=== PATIENT | male | born 1935 | race Caucasian/White ===

== ENCOUNTER 2016-10-04 08:48 | Inpatient (IN) ==
[2016-10-04] MEDS ORDERED: ALBUTEROL/IPRATROPIUM 3 ML NEB RESP TX PRN (08:50)
[2016-10-04] MEDS: DEXTROSE 5% NACL 0.45% 1,000 ML IV SCH (10:30)
--- NOTE | 2016-10-04 10:32 | Pulmonology History & Physical ---
History of Present Illness Chief complaint: Acute LLL pneumonia refractory to OP treatment History of present illness: Tristin Townsend, ANP-BC, GNP-BC, acting as scribe for Dr. Anjel Petit Mr. Perry is an 80-year-old white male from [place], [place], who was [facility] yesterday by Dr. Petit. Patient presented to the clinic with complaints of increased shortness of breath, dyspnea on exertion, productive cough with discolored sputum. He has actually increased his prednisone from his usual 10 mg daily to 20 mg daily over the weekend. He called late last week for antibiotics and was prescribed Pen-Vee K and Levaquin , however, his local pharmacy would not fill his Levaquin secondary to interactions with his amiodarone. They told the patient that they would "get in contact with his doctor". They held his medicine until yesterday. By that time, the patient had developed an acute left lower lung infiltrate compatible with pneumonia. Hospitalization was offered but he declined. He was given IV gentamicin and Rocephin yesterday, however, he slightly worsened through the night and felt that he was to the point where hospitalization would benefit him. He is being admitted for further evaluation and care. He is reporting increased shortness of breath, dyspnea on exertion, productive cough with discolored sputum as above. He denies any cardiac angina or palpitations. There is no reported dysphasia or significant reflux. No change in bowel or bladder habits. No bleeding from any site. No TIA symptoms or syncope. All other systems were reviewed and were negative. Allergies: None Home medications: Albuterol 1 mg twice daily. Nebulized albuterol 2-4 times daily. Allopurinol 100 mg daily. Baby aspirin once a day. Centrum Silver vitamin daily. Tranxene 3.75 mg 1 or 2 daily. Coreg 3.125 mg tablets 2 in the morning 1 in the evening. Coumadin as directed. Ferrous sulfate 325 mg twice daily. Hydrochlorothiazide 25 mg twice daily. Miacalcin nasal spray 1 spray to each nare daily alternate sides. Singular 10 mg daily. KCl 10 mEq twice daily. Prednisone 10 mg daily recently increased to 20 mg daily see above. Trazodone 50 mg daily. Ventolin HFA inhaler 2 puffs 4 times daily as needed. Immunizations: Pneumovax was given in 2010. Patient is yearly flu shot. Past history: [facility] hospitalization 05/08/2012 through 05/14/2012 with acute congestive heart failure secondary to systolic and diastolic dysfunction and acute atrial fibrillation. History of cardiomyopathy with an ejection fraction of about 25%. Echocardiogram done 10/30/2013 showed an ejection fraction 55% or greater. Asthma, steroid dependent on a multiyear basis. History of gout. History of high blood pressure. History of colon polyps. Hypertension. Gastric esophageal reflux disease. December 2010 left lower extremity deep venous thrombophlebitis with pulmonary emboli. Chronic Coumadin therapy. Degenerative joint disease. 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 Chronic allergic sinusitis. Nasal polyps. History of relative adrenal insufficiency. Diverticulosis. Previous sigmoid resection. BPH with normal PSA. Hyperglycemia. Left total knee replacement spring 2014. In September 2015 the patient had colon surgery for removal of a villous adenoma. Social history: The patient quit smoking in 1971. In the past he drank alcohol occasionally but not to excess. He is a retired realtor. He is . He put 5 children through college. His sold [email or web address] about a year or so ago. She is retired now and exercises daily. Family history: Positive for high blood pressure. Procedures: 2D echocardiogram done October 2013 showed an ejection fraction greater than 55%, +1 mitral regurgitation, +1 aortic insufficiency, and trace of tricuspid insufficiency. Colonoscopy in 2010 showed colon polyps. Colonoscopy done 10/03/[address] Mena showed the patient's right colon polyposis had resolved. There was diverticular disease of the colon. Follow- up colonoscopy in January 2015 showed a broad-based villous adenoma the cecum. Colonoscopy was done 06/08/[address] Virgil Calzada. 4 polyps were removed and there was 1 large cecal polyp that was aggressively hot biopsied and fulgurated and tattooed. See Dr. Solorzano clinic note and operative note regarding this. There is a patient history of pancolonic polyposis followed by [facility]. There is been a previous surgery with resection of a portion of the descending sigmoid colon where the patient had diverticular disease with scarring. He has had pathology showing a tubulovillous adenoma and a hyperplastic polyp. Echocardiogram done 05/06/2015 showed ejection fraction greater than 50%, mild concentric left ventricular hypertrophy, trace of mitral insufficiency, and +1 aortic insufficiency. The patient had normal bilateral carotid duplexes and normal abdominal aortic ultrasound 04/28/2006. Chest x-ray. Done 10/04/2016. Pending. Laboratory: Pending EKG: Pending Home Medications Medication Instructions Recorded Confirmed Type Albuterol Sulfate [Albuterol Tab] 4 mg PO DAILY 06/05/15 10/04/16 History Allopurinol 100 mg PO DAILY 06/05/15 10/04/16 History Aspirin [Ecotrin] 81 mg PO BEDTIME 06/05/15 10/04/16 History Carvedilol [Coreg] 2 tablet PO DAILY 06/05/15 10/04/16 History Folic Acid/Multivit-Min/Lutein 1 tablet PO DAILY 06/05/15 10/04/16 History [Centrum Silver Chew Tab] Montelukast Tab [Singulair Tab] 10 mg PO BEDTIME 06/05/15 10/04/16 History Warfarin [Coumadin] 2.5 mg PO DIRECTED 06/05/15 10/04/16 History predniSONE TAB [PredniSONE] 10 mg PO DAILY 06/05/15 10/04/16 History Amiodarone HCl 200 mg PO DAILY 08/22/16 10/04/16 History Calcitonin Nasal [place] [Miacalcin 200 units ONE NARE BEDTIME 08/22/16 10/04/16 History Nasal [place]] Potassium Chloride 10 meq PO BEDTIME 08/22/16 10/04/16 History Trazodone HCl 50 mg PO BEDTIME 08/22/16 10/04/16 History hydroCHLOROthiazide 25 mg PO DAILY 08/22/16 10/04/16 History [Hydrochlorothiazide] Carvedilol [Coreg] 3.125 mg PO BEDTIME 10/04/16 10/04/16 History Allergies Allergy/AdvReac Type Severity Reaction Status Date / Time No Known Allergies Allergy Verified 08/22/16 06:10 Medical,Surgical,& Family Hx - Medical History Cardio: History of: Cardiac Dysrhythmia (atrial fib), Congenital Heart Disease, CHF (in the past), CAD, Cardiovascular Problems (cardiomyopathy) Neurology: No history of: Seizures HEENT: History of: HEENT Problems (sinus surgery) Endocrine: No history of: Thyroid Disorder Rheumatology: History of;: Gout Respiratory: History of: Asthma Gastrointestinal: History of: Hepatitis (in high school), Polyps Hematology: History of: Clotting Problems (DVT) No history of: Blood Transfusion Reaction Other: No history of: Anesthesia Reactions, Cancer - Surgical History Cardiac Surgeries: Sugical HX of: Cardiac Catheterization HEENT Surgeries: Surgical HX of: Eye Surgery (cataracts), Tonsilectomy & Adenoidectomy Abdominal Surgeries: Surgical HX of: Colonoscopy, EGD Patient denies: Appendectomy, Cholecystectomy Orthopedic Surgeries: Surgical HX of;: Total Knee Replacement (LEFT) Patient denies;: Orthopedic Surgery (forearm) - Family History Family History: Reports;: Family Cancer (brother- lung), Family Hypertension ( HTN) Denies;: Family Anesthesia Reaction, Family Diabetes, Family Heart Disease, Family Hematology, Family Psychiatric Problems, Family Stroke, Additional Family History - Social History Smoking Status: Former smoker Frequency of Alcohol Use: None Type of Drug Use: None Exam (Pulmonay) H&P - Constitutional Vitals: Period Temp Pulse Resp BP Sys/Mar Pulse Ox Last 24 Hr 98.1 F 63 16 122/60 93 Exam: Psych: Oriented x 3; a pleasant and cooperative patient who is acutely ill appearing; memory is only fair and this is probably exacerbated by his poor hearing acuity HEENT: Pupils, irises, sclera, conjunctiva, and eyelids are normal. The face is symmetrical without rash or masses. Lips, tongue, buccal mucosa, soft and hard palates, and pharynx are WNL . Neck: Symmetrical. Thyroid was not palpated. Lymphatics: No submandibular, cervical, or supraclavicular adenopathy Chest: Kyphotic with prolonged expiration; inspiratory squeaks; congestion at left base CV: Irregular without murmur, rub, or gallop Arterial: Carotids with a good upstroke. There is no bruit. Upper extremity pulses are palpable. Posterior tibial pulses are palpable. Venous: Exam of the neck, upper, and lower extremities is normal with the exception of lower extremity nonthrombosed varicosities Abd: Protuberant with lax abdominal musculature. No appreciable organomegaly. No tenderness. No bruit. Bowel sounds are positive 4. The aorta could not be palpated. /Rectal: Deferred Extremities: No clubbing, cyanosis, edema, or obvious DVT; nonthrombosed superficial varicosities Skin: No cancerous or infectious lesions of the exposed, examined skin; the perineal area was not examined M/S: Mild age-appropriate loss of the normal curvature of the cervical, thoracic , and lumbar spine. Degenerative changes of the hands. Neurological: Cranial nerves are intact with decreased hearing acuity bilaterally. Long-term motor function is intact. Sensory exam was not done. Gait was not tested. The remainder of the exam was noncontributory. Impression: #1: Acute left lower lung infiltrate compatible with pneumonia refractory to outpatient treatment #2: Steroid-dependent asthma #3: Atrial fibrillation #4: Chronic Coumadin therapy #5: History of sleep disturbance which resolved with trazodone #6: Status post resection of villous adenoma of the cecum September 2015 #7: December/January 2011 hospitalization with left lower extremity deep venous thrombophlebitis and pulmonary emboli. Follow-up venograms have shown scarring but no residual thrombus. #8: High blood pressure #9: Degenerative joint disease. Left total knee replacement spring 2014. #10: Chronic allergic sinusitis #11: Gastroesophageal reflux disease #12: History of nasal polyps #13: Diverticulosis #14: BPH with normal PSA #15: Past history of cardiomyopathy with an ejection fraction of about 20%. Ejection fraction April 2015 was greater than or equal to 55%. In December 2015 ejection fraction was greater than 55%. Recent ejection fraction of 45%. Previous cardiac catheterization showed no coronary artery disease. #16: See past history Plan: #1: Admit to inpatient #2: IV antibiotics with Merrem and Fortaz #3: Check blood cultures #4: Check sputum for Gram stain, culture and sensitivity #5: Check cold agglutinins and Legionella #6: See orders
--- NOTE | 2016-10-04 10:32 | EKG Report ---
Stationary ECG Study [facility] Test Date: 10/04/2016 10:32:41 AM Pat Name: HIGINIO MALAGON Department: Room: 540 Gender: M Senior Statistical Programmer: : 1935 Requested by: Tristin Townsend Order Number: [id number] Reading MD: TAVIA MOON Intervals [place] Rate: 61 P: -42 CT: 194 QRS: -83 QRSD: 141 T: 24 QT: 484 QTc: 486 Interpretive Statements SINUS RHYTHM . First-degree AV block right bundle branch block. Left bundle branch block. No acute change Electronically Signed On 10-05-16 09:34:35 CDT by TAVIA MOON [email or web address]
[2016-10-04] MEDS: MEROPENEM 500 MG in SODIUM CHLORIDE 0.9% 100 ML IV SCH ×2 (10:52→18:01)
[2016-10-04] MEDS: methylPREDNISolone SOD SUC 40 MG/1 ML VIAL IV SCH ×2 (10:52→23:50)
[2016-10-04 11:28] LABS: Basophils % 0.1 % (0.0-0.8); Eosinophils % 0.2 % (0.00-10.9); Hematocrit 39.9 VOL% (42.0-52.0); Hemoglobin 13.3 GM/DL (14.0-18.0); Immature Granulocytes % 0.4 %; Immature Granulocytes Absolute 0.06 #; Lymphocytes # 0.8 10*3/uL (1.4-4.0); Lymphocytes % 5.5 % (21.2-54.2); Mean Corpuscular HGB Conc 33.3 GM/DL (32-36); Mean Corpuscular Hemoglobin 31 PG (27-34); Mean Corpuscular Volume 92.4 FL (87-102); Mean Platelet Volume 9.1 FL (9.6-12.0); Monocytes % 7.3 % (1.7-12.7); Neutrophils % 86.5 % (38.7-73.9); Platelet Count 247 T/CUMM (130-400); Red Blood Count 4.32 MC/CUMM (3.8-5.5); Red Cell Distribution Width 13.5 % (9.3-17.3); White Blood Count 13.9 T/CUMM (4-12)
[2016-10-04 11:42] LABS: INR 3.1
[2016-10-04 11:48] LABS: PT Patient Result 35.4 SECS
[2016-10-04 12:04] LABS: Albumin 3.1 G/DL (3.4-5.0); Bilirubin,Total 0.7 MG/DL (0.2-1.0); Calcium 8.3 MG/DL (8.5-10.1); Osmolality,Calculated 277.8 MOS/KG (273-304); Potassium 4.3 MMOL/L (3.5-5.1); Thyroid Stimulating Hormone 0.476 uIU/ml (0.358-3.74); Total Protein 5.7 G/DL (6.4-8.3)
[2016-10-04 12:24] LABS: Apearance,Urine CLEAR (Clear); Bilirubin,Urine Negative (Negative); Blood, Urine Negative (Negative); Glucose,Urine (UA) Negative (Negative); Ketones,Urine Negative (Negative); Nitrite,Urine Negative (Negative); Protein,Urine Negative; RBC,Urine 1 /HPF (0-4); Urine Color Yellow (Yellow); Urine Urobilinogen < 2.0 EU/DL (0.2-1.0); WBC,Urine <1 /HPF (0-6)
[2016-10-04] MEDS: ALBUTEROL/IPRATROPIUM 3 ML NEB RESP TX SCH ×2 (13:58→19:00)
--- NOTE | 2016-10-04 14:20 | XRay Report ---
XR chest 2V Indication: SOB Comparison: Chest x-ray dated October 07, 2015 Technique: Frontal and lateral views of the chest Findings: Continued mild cardiomegaly. Increased patchy opacification within the posterior left lung base suspicious for pneumonia. The lungs remain hyperinflated suggestive of COPD. Osseous and surrounding soft tissue structures appear grossly unchanged. IMPRESSION: As above. PROCEDURE INTERPRETED AT [facility] DEPARTMENT OF RADIOLOGY Final Report Signed by: Dr Mihir Oshea
[2016-10-04] MEDS: WARFARIN 2.5 MG TABLET PO SCH (17:47)
[2016-10-04] MEDS: ASPIRIN EC 81 MG TABLET PO SCH (20:59)
[2016-10-04] MEDS: traZODone 50 MG TABLET PO SCH (20:59)
[2016-10-04] MEDS: MONTELUKAST 10 MG TABLET PO SCH (20:59)
[2016-10-04] MEDS: CARVEDILOL 3.125 MG TABLET PO SCH (20:59)
[2016-10-04] MEDS: POTASSIUM CHLORIDE 10 MEQ TABLET PO SCH (20:59)
[2016-10-04] MEDS: ALBUTEROL 0.4 MG/ML 30 ML/BOTTLE PO SCH (21:00)
[2016-10-04] MEDS: CALCITONIN NASAL SPRAY 3.7 ML BOTTLE ONE NARE SCH (22:00)
[2016-10-05] MEDS: ALBUTEROL/IPRATROPIUM 3 ML NEB RESP TX SCH ×4 (00:26→19:34)
[2016-10-05] MEDS: DEXTROSE 5% NACL 0.45% 1,000 ML IV SCH ×2 (00:56→22:41)
[2016-10-05] MEDS: MEROPENEM 500 MG in SODIUM CHLORIDE 0.9% 100 ML IV SCH ×3 (03:58→17:36)
[2016-10-05 06:15] LABS: INR 2.7
[2016-10-05 06:16] LABS: PT Patient Result 30.1 SECS
[2016-10-05] MEDS: MULTIVITAMIN (CENTRUM) TABLET PO SCH (08:13)
[2016-10-05] MEDS: ALLOPURINOL 100 MG TABLET PO SCH (08:13)
[2016-10-05] MEDS: hydroCHLOROthiazide 25 MG TABLET PO SCH (08:13)
[2016-10-05] MEDS: AMIODARONE 200 MG TABLET PO SCH (08:14)
[2016-10-05] MEDS: CARVEDILOL 3.125 MG TABLET PO SCH ×2 (08:14→20:47)
[2016-10-05] MEDS: methylPREDNISolone SOD SUC 40 MG/1 ML VIAL IV SCH ×3 (08:14→22:44)
[2016-10-05] MEDS: ALBUTEROL 0.4 MG/ML 30 ML/BOTTLE PO SCH ×2 (08:17→20:51)
[2016-10-05] MEDS ORDERED: ALBUTEROL 2 MG TABLET PO SCH (09:00)
--- NOTE | 2016-10-05 10:59 | Pulmonology Progress Note ---
Pulmonary - PN: Subj Interval history: Tristin Townsend, ANP-BC, GNP-BC, acting as scribe for Dr. Anjel Petit Mr. Perry is an 80-year-old white male who was admitted 10/04/2016 from [facility]. 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 Follow-up venograms have shown scarring but no residual thrombus. #8: High blood pressure #9: Degenerative joint disease. Left total knee replacement spring 2014. #10: Chronic allergic sinusitis #11: Gastroesophageal reflux disease #12: History of nasal polyps #13: Diverticulosis #14: BPH with normal PSA #15: Past history of cardiomyopathy with an ejection fraction of about 20%. Ejection fraction April 2015 was greater than or equal to 55%. In December 2015 ejection fraction was greater than 55%. Recent ejection fraction of 45%. Previous cardiac catheterization showed no coronary artery disease. #16: See past history 10/05/2016. The patient was seen today along with his nurse Raina, and . He says he feels much better today since the initiation of IV antibiotics. He is presently being treated with Merrem and Fortaz. Sputum for Gram stain, culture and sensitivity was ordered at admission, however, has not yet been collected. He states he is having difficulty mobilizing his secretions today. He has been up and ambulating in the halls and states he has done well with this. Chest x-ray today shows continued left lower lung infiltrate. We will repeat chest x-ray tomorrow. Cold agglutinins are negative. Legionella titers pending. Medications have been reviewed. He has persistent and ineffective cough, so we have added Tessalon 200 mg p.o. 3 times daily. Labs been reviewed. INR today is 2.7 Exam (Progress Note) - Constitutional Vitals: Period Temp Pulse Resp BP Sys/Mar Pulse Ox Last 24 Hr 97.4 F-98.5 F 57-88 16-20 101-147/45-77 91-96 Exam: Chest... See above Heart no gallop Abdomen is nontender nondistended; bowel sounds are positive 4 Extremities with nothing to suggest acute deep venous thrombophlebitis Psychiatric oriented 3 Neurologic long-term motor function is intact Plan: Repeat chest x-ray in the morning. Tessalon 200 mg p.o. 3 times daily. Continue present treatment. We have told the patient will probably be Monday at the earliest before he is ready for discharge. Results - Labs CBC & BMP: 10/04/16 11:09 10/04/16 11:06
[2016-10-05] MEDS: BENZONATATE 100 MG CAPSULE PO SCH ×2 (14:33→20:48)
[2016-10-05] MEDS ORDERED: WARFARIN 5 MG TABLET PO SCH (18:00)
[2016-10-05] MEDS: traZODone 50 MG TABLET PO SCH (20:47)
[2016-10-05] MEDS: MONTELUKAST 10 MG TABLET PO SCH (20:47)
[2016-10-05] MEDS: ASPIRIN EC 81 MG TABLET PO SCH (20:48)
[2016-10-05] MEDS: POTASSIUM CHLORIDE 10 MEQ TABLET PO SCH (20:49)
[2016-10-05] MEDS: CALCITONIN NASAL SPRAY 3.7 ML BOTTLE ONE NARE SCH (20:53)
[2016-10-06] MEDS: ALBUTEROL/IPRATROPIUM 3 ML NEB RESP TX SCH ×4 (01:15→20:00)
[2016-10-06] MEDS: MEROPENEM 500 MG in SODIUM CHLORIDE 0.9% 100 ML IV SCH ×3 (02:20→17:31)
[2016-10-06 07:31] LABS: Hematocrit 36.8 VOL% (42.0-52.0); Hemoglobin 12.5 GM/DL (14.0-18.0); Immature Granulocytes Absolute 0.11 #; Lymphocytes # 0.3 10*3/uL (1.4-4.0); Lymphocytes % 2.8 % (21.2-54.2); Mean Corpuscular Hemoglobin 31 PG (27-34); Mean Corpuscular Volume 91.1 FL (87-102); Mean Platelet Volume 9.2 FL (9.6-12.0); Monocytes # 0.4 10*3/uL (0.11-0.8); Monocytes % 3.5 % (1.7-12.7); Neutrophils # 10.6 10*3/uL (1.4-7.4); Neutrophils % 92.7 % (38.7-73.9); Platelet Count 252 T/CUMM (130-400); Red Blood Count 4.04 MC/CUMM (3.8-5.5); Red Cell Distribution Width 13.4 % (9.3-17.3); White Blood Count 11.4 T/CUMM (4-12)
[2016-10-06 07:47] LABS: INR 1.9; PT Patient Result 21.1 SECS
[2016-10-06 08:02] LABS: Calcium 8.2 MG/DL (8.5-10.1); Magnesium 2.2 MG/DL (1.8-2.4); Osmolality,Calculated 288.4 MOS/KG (273-304); Potassium 4.5 MMOL/L (3.5-5.1)
[2016-10-06 08:03] LABS: Elliptocytes Few; Hypochromasia 1+; Lymphocytes 4 % (20-55); Platelet Estimate Adequate; Segmented Neutrophils 89 % (50-85); Total Cells Counted 100
[2016-10-06] MEDS: MULTIVITAMIN (CENTRUM) TABLET PO SCH (08:15)
[2016-10-06] MEDS: BENZONATATE 100 MG CAPSULE PO SCH ×4 (08:15→20:26)
[2016-10-06] MEDS: hydroCHLOROthiazide 25 MG TABLET PO SCH (08:16)
[2016-10-06] MEDS: ALBUTEROL 0.4 MG/ML 30 ML/BOTTLE PO SCH ×2 (08:16→20:21)
[2016-10-06] MEDS: ALLOPURINOL 100 MG TABLET PO SCH (08:16)
[2016-10-06] MEDS: AMIODARONE 200 MG TABLET PO SCH (08:16)
[2016-10-06] MEDS: CARVEDILOL 3.125 MG TABLET PO SCH ×2 (08:16→20:14)
--- NOTE | 2016-10-06 09:01 | XRay Report ---
Exam: XR chest 2V Date: 10/06/2016 4:00 AM Indication: Left lower lobe pneumonia Comparison: 10/04/2016 Technical: PA lateral Findings: Cardiomegaly is present. Patchy interstitial infiltrate in the left retrocardiac region left base. Mild degenerative change thoracic spine. ASVD is present. No obvious pneumothorax. External cardiac leads are present. Impression: 1. Persistent left posterior basilar pneumonic infiltrate. No significant change 2. Cardiomegaly. 3. Degenerative spondylosis change thoracic spine PROCEDURE INTERPRETED AT [facility] DEPARTMENT OF RADIOLOGY Final Report Signed by: Dr. Anjel Wright
[2016-10-06] MEDS: methylPREDNISolone SOD SUC 40 MG/1 ML VIAL IV SCH ×2 (09:34→22:05)
--- NOTE | 2016-10-06 10:09 | Pulmonology Progress Note ---
Pulmonary - PN: Subj Interval history: Tristin Townsend, ANP-BC, GNP-BC, acting as scribe for Dr. Anjel Petit Mr. Perry is an 80-year-old white male who was admitted 10/04/2016 from [facility]. 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 Follow-up venograms have shown scarring but no residual thrombus. #8: High blood pressure #9: Degenerative joint disease. Left total knee replacement spring 2014. #10: Chronic allergic sinusitis #11: Gastroesophageal reflux disease #12: History of nasal polyps #13: Diverticulosis #14: BPH with normal PSA #15: Past history of cardiomyopathy with an ejection fraction of about 20%. Ejection fraction April 2015 was greater than or equal to 55%. In December 2015 ejection fraction was greater than 55%. Recent ejection fraction of 45%. Previous cardiac catheterization showed no coronary artery disease. #16: See past history 10/05/2016. The patient was seen today along with his nurse Raina and . He says he feels much better today since the initiation of IV antibiotics. He is presently being treated with Merrem and Fortaz. Sputum for Gram stain, culture and sensitivity was ordered at admission, however, has not yet been collected. He states he is having difficulty mobilizing his secretions today. He has been up and ambulating in the halls and states he has done well with this. Chest x- ray today shows continued left lower lung infiltrate. We will repeat chest x- ray tomorrow. Cold agglutinins are negative. Legionella titers pending. 10/06/2016. The patient was seen today along with his nurse Raina and his . He states that his breathing is improving every day. He is able to ambulate quite a bit in the halls yesterday and we have encouraged more of this. He reports that his cough is now dry and nonproductive. He has been unable to produce a sputum for testing. Chest x-ray today was reviewed and showed slight residual infiltrate in the left lower lobe but this is clearing nicely. The patient is on chronic Coumadin therapy secondary to atrial fibrillation as well as history of DVT/PE. INR today is dropped 1.9. We again confirmed his home dose was alternating 2.5 mg and 5 mg. He is on this dose. Will recheck INR tomorrow. Blood culture negative thus far. Medications have been reviewed. No medication changes were made today. Labs been reviewed. White count is 11,400 with 92.7% segs; H&H 12.5/36.8; platelet count 252,000; INR 1.9; creatinine has improved to 1.30, BUN 24, electrolytes were normal Exam (Progress Note) - Constitutional Vitals: Period Temp Pulse Resp BP Sys/Mar Pulse Ox Last 24 Hr 97.4 F-98.5 F 62-95 16-20 119-163/61-82 90-99 Exam: Chest... See above Heart no gallop Abdomen is nontender nondistended; bowel sounds are positive 4 Extremities with nothing to suggest acute deep venous thrombophlebitis Psychiatric oriented 3 Neurologic long-term motor function is intact Plan: Repeat chest x-ray and labs in the morning. Continue present treatment. We have told the patient's it is possible he would be ready for discharge tomorrow, but certainly not definite. Results - Labs CBC & BMP: 10/06/16 06:51 10/06/16 06:51
[2016-10-06] MEDS: WARFARIN 2.5 MG TABLET PO SCH (17:29)
[2016-10-06] MEDS: ASPIRIN EC 81 MG TABLET PO SCH (20:13)
[2016-10-06] MEDS: traZODone 50 MG TABLET PO SCH (20:14)
[2016-10-06] MEDS: POTASSIUM CHLORIDE 10 MEQ TABLET PO SCH (20:14)
[2016-10-06] MEDS: CALCITONIN NASAL SPRAY 3.7 ML BOTTLE ONE NARE SCH (20:14)
[2016-10-06] MEDS: MONTELUKAST 10 MG TABLET PO SCH (20:14)
[2016-10-06] MEDS: DEXTROSE 5% NACL 0.45% 1,000 ML IV SCH (20:20)
[2016-10-07] MEDS: ALBUTEROL/IPRATROPIUM 3 ML NEB RESP TX SCH ×2 (01:50→07:47)
[2016-10-07] MEDS: MEROPENEM 500 MG in SODIUM CHLORIDE 0.9% 100 ML IV SCH ×2 (03:09→11:07)
[2016-10-07 06:41] LABS: Basophils % 0.1 % (0.0-0.8); Hematocrit 37.4 VOL% (42.0-52.0); Hemoglobin 12.6 GM/DL (14.0-18.0); Immature Granulocytes % 1.1 %; Lymphocytes # 0.3 10*3/uL (1.4-4.0); Lymphocytes % 3.3 % (21.2-54.2); Mean Corpuscular HGB Conc 33.7 GM/DL (32-36); Mean Corpuscular Hemoglobin 31 PG (27-34); Mean Corpuscular Volume 91.7 FL (87-102); Mean Platelet Volume 8.9 FL (9.6-12.0); Monocytes # 0.4 10*3/uL (0.11-0.8); Monocytes % 4.7 % (1.7-12.7); Neutrophils # 8.2 10*3/uL (1.4-7.4); Neutrophils % 90.8 % (38.7-73.9); Platelet Count 243 T/CUMM (130-400); Red Blood Count 4.08 MC/CUMM (3.8-5.5); Red Cell Distribution Width 13.4 % (9.3-17.3)
[2016-10-07 06:49] LABS: INR 1.7; PT Patient Result 18.9 SECS
[2016-10-07 07:11] LABS: Acanthocytes Few; Hypochromasia 1+; Lymphocytes 1 % (20-55); Ovalocytes Few; Segmented Neutrophils 96 % (50-85); Total Cells Counted 100
[2016-10-07 07:12] LABS: Magnesium 2.3 MG/DL (1.8-2.4); Microcytosis Slight; Osmolality,Calculated 290.3 MOS/KG (273-304); Platelet Estimate Normal
--- NOTE | 2016-10-07 08:45 | XRay Report ---
XR chest 2V Date: 10/07/2016 4:00 AM History: Pneumonia Comparison: 10/06/2016 Technique: PA and lateral chest Findings: Stable cardiomegaly with uncoiling of the aorta. Reduced parenchymal findings at the left lung base. Residual atelectasis at the right lung base. Stable mediastinum and osseous structures. Impression: COPD with mildly reduced atelectasis/infiltration at the left lung base. Residual atelectasis at the right lung base. PROCEDURE INTERPRETED AT [facility] DEPARTMENT OF RADIOLOGY Final Report Signed by: Dr. Concepcion Mon
[2016-10-07] MEDS: ALBUTEROL 0.4 MG/ML 30 ML/BOTTLE PO SCH (08:56)
[2016-10-07] MEDS: ALLOPURINOL 100 MG TABLET PO SCH (08:57)
[2016-10-07] MEDS: hydroCHLOROthiazide 25 MG TABLET PO SCH (08:57)
[2016-10-07] MEDS: MULTIVITAMIN (CENTRUM) TABLET PO SCH (08:57)
[2016-10-07] MEDS: BENZONATATE 100 MG CAPSULE PO SCH (08:57)
[2016-10-07] MEDS: AMIODARONE 200 MG TABLET PO SCH (08:57)
[2016-10-07] MEDS: CARVEDILOL 3.125 MG TABLET PO SCH (08:57)
--- NOTE | 2016-10-07 11:03 | Discharge Summary ---
Hospital Course - Hospital Course Hospital Course: Tristinmayte Townsend, ANP-BC, GNP-BC, acting as scribe for Dr. Anjel Petit Mr. Perry is an 80-year-old white male from [place], [place], who was [facility] the day prior to admission by Dr. Petit. The day of admision, the patient presented to the clinic with complaints of increased shortness of breath, dyspnea on exertion, productive cough with discolored sputum. He had actually increased his prednisone from his usual 10 mg daily to 20 mg daily over the previous weekend. He called late last week for antibiotics and was prescribed Pen-Vee K and Levaquin, however, his local pharmacy would not fill his Levaquin secondary to interactions with his amiodarone. They told the patient that they would "get in contact with his doctor". They held his medicine until the day prior to admission. By that time , the patient had developed an acute left lower lung infiltrate compatible with pneumonia. Hospitalization was offered but he declined. He was given IV gentamicin and Rocephin the day prior to admission at [facility], however, he slightly worsened through that night and felt that he was to the point where hospitalization would benefit him. He was admitted for further evaluation and care. At admission, the patient was started on IV Merrem and Fortaz. Sputum for Gram stain, culture, and sensitivity was ordered at admission, however, the patient has been unable to produce sputum for testing. Cold agglutinins were negative. Legionella titer was negative. Over time, the patient's chest x-ray has improved but continues to show a tiny amount of infiltrate in the left lower lung, however, this lags behind his clinical improvement. At discharge, he will continue Pen-Vee K and Ceftin for another 10 days. His Solu-Medrol will be converted back to prednisone 20 mg daily. He will continue on this dose until he is seen back in clinic in approximately 2 weeks. Blood cultures are negative at the time of discharge. At discharge, white count 9000 (was 13,900 at admission) with 90.8% segs, 3.3% lymphs, 4.7% monos; H&H 12.6/37.4 with normal indices and normal red blood cell distribution with; platelet count 243,000; INR 1.7; creatinine 1.20 (was 1.4 to admission), BUN 24, sodium 141, potassium 5.0, magnesium 2.3; liver function tests within normal limits; calcium low at 8.0 reflected in a low albumin of 3.1 , total protein 5.7; BNP at admission was 780 and was not rechecked prior to discharge; TSH 0.476, free T4 was elevated at 1.47 (note, the patient is on amiodarone); urinalysis showed no evidence of infection. For more information regarding Mr. Perry's past medical history, social history , family history, past procedures, admit labs, admit x-ray, and admit exam please see my admission note dated 10/04/2016. 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 Follow-up venograms have shown scarring but no residual thrombus. #8: High blood pressure #9: Degenerative joint disease. Left total knee replacement spring 2014. #10: Chronic allergic sinusitis #11: Gastroesophageal reflux disease #12: History of nasal polyps #13: Diverticulosis #14: BPH with normal PSA #15: Past history of cardiomyopathy with an ejection fraction of about 20%. Ejection fraction April 2015 was greater than or equal to 55%. In December 2015 ejection fraction was greater than 55%. Recent ejection fraction of 45%. Previous cardiac catheterization showed no coronary artery disease. #16: See past history Plan: Pen-Vee K 500 mg 4 times daily for 10 days, Ceftin 500 mg twice daily for 10 days, Coumadin 5 mg daily, aspirin 81 mg at bedtime, amiodarone 200 mg daily , allopurinol 100 mg daily, albuterol liquid 1 mg twice daily, Coreg 3.125 mg twice daily, Miacalcin nasal spray 1 spray nightly alternating sides, trazodone 50 mg at bedtime, KCl 10 mEq at bedtime, Singulair 10 mg at bedtime, multivitamin daily, hydrochlorothiazide 25 mg daily, and prednisone 20 mg daily until his return appointment at which time we hope to decrease him back to his regular dose of 10 mg daily. He will also continue his home dose of inhalation therapy. He will be scheduled to follow-up with Raina Jones, nurse practitioner, in approximately 2 weeks with a chest x-ray, CBC, and INR. He can be seen sooner if needed. We have asked him to get an INR on 10/12/[address] [facility] [address] Dr. Rendon to review. Specialty Discharge - Follow Up or Referrals Follow up with: Raina Jones CFNP [Advanced Practice Nurse] - 2 Weeks (NOT A MONDAY; with CXR, CBC, and INR) Discharge Plan - Discharge Data Disposition: Disch To Home/Self Care Condition at Discharge: Stable Discharge Diet: heart healthy - Discharge Medications New Albuterol/Ipratropium Neb [Duoneb] 3 ml RESP TX RT Q4H PRN #0 PRN Reason: Shortness Of Breath/Wheezing Cefuroxime Tab [Ceftin] 500 mg PO BID #20 tablet Penicillin Vk Tab 500 mg PO Q6HR #40 tablet Warfarin [Coumadin] 5 mg PO DAILY tablet Albuterol Liquid [Proventil Liquid] 1 mg PO BID #150 mls Albuterol/Ipratropium Neb [Duoneb] 3 ml RESP TX RT Q6H Continue Montelukast Tab [Singulair Tab] 10 mg PO BEDTIME Folic Acid/Multivit-Min/Lutein [Centrum Silver Chew Tab] 1 tablet PO DAILY Aspirin [Ecotrin] 81 mg PO BEDTIME Allopurinol 100 mg PO DAILY Calcitonin Nasal May [Miacalcin Nasal May] 200 units ONE NARE BEDTIME Trazodone HCl 50 mg PO BEDTIME Potassium Chloride 10 meq PO BEDTIME hydroCHLOROthiazide [Hydrochlorothiazide] 25 mg PO DAILY Amiodarone HCl 200 mg PO DAILY Changed Carvedilol [Coreg] 3.125 mg PO BID #0 predniSONE TAB [PredniSONE] 20 mg PO DAILY #0 Discontinued Warfarin [Coumadin] 2.5 mg PO DIRECTED Carvedilol [Coreg] 2 tablet PO DAILY Albuterol Sulfate [Albuterol Tab] 4 mg PO DAILY - Follow Up or Referral - Forms/Instructions Instructions: Atrial Fibrillation (DC), Hypertrophic Cardiomyopathy (DC), COPD , Hospice Art Therapist (GEN) Exam - Constitutional Vitals: Period Temp Pulse Resp BP Sys/Mar Pulse Ox Last 24 Hr 97.4 F-98.5 F 61-96 18-20 112-136/53-78 92-99 Discharge Results Procedures and tests throughout hospitalization: Pending Orders 10/04/16 10:26 Sputum Culture and Gram Stain Routine 10/04/16 11:53 Blood Culture Routine Labs on day of discharge: Labs from last 24 hours 10/07/16 10/07/16 10/07/16 06:26 06:26 06:26 WBC 9.0 RBC 4.08 Hgb 12.6 L Hct 37.4 L MCV 91.7 MCH 31 MCHC 33.7 RDW 13.4 Plt Count 243 MPV 8.9 L Neut % (Auto) 90.8 H Lymph % (Auto) 3.3 L Burke % (Auto) 4.7 Eos % (Auto) 0.0 Baso % (Auto) 0.1 Neut # (Auto) 8.2 H Lymph # (Auto) 0.3 L Burke # (Auto) 0.4 Eos # (Auto) 0.0 Baso # (Auto) 0.0 Total Counted 100 Immature Gran % 1.1 Nucleated RBC % 0.0 Immature Gran # 0.10 Segmented Neutrophils 96 H Lymphocytes 1 L Monocytes 3 Nucleated RBCs # 0.00 Platelet Estimate Normal Hypochromasia 1+ Microcytosis Slight Ovalocytes Few Acanthocytes (Spur) Few INR 1.7 PT Patient/Control Mix 18.9 Sodium 141 Potassium 5.0 Chloride 104 Carbon Dioxide 30 Anion Gap 12.0 BUN 24 H Creatinine 1.20 GFR Calculation 70 BUN/Creatinine Ratio 20.00 Glucose 199 H Calculated Osmolality 290.3 Calcium 8.0 L Magnesium 2.3 Legionella pneumophila Ab 10/04/16 11:09 WBC RBC Hgb Hct MCV MCH MCHC RDW Plt Count MPV Neut % (Auto) Lymph % (Auto) Burke % (Auto) Eos % (Auto) Baso % (Auto) Neut # (Auto) Lymph # (Auto) Burke # (Auto) Eos # (Auto) Baso # (Auto) Total Counted Immature Gran % Nucleated RBC % Immature Gran # Segmented Neutrophils Lymphocytes Monocytes Nucleated RBCs # Platelet Estimate Hypochromasia Microcytosis Ovalocytes Acanthocytes (Spur) INR PT Patient/Control Mix Sodium Potassium Chloride Carbon Dioxide Anion Gap BUN Creatinine GFR Calculation BUN/Creatinine Ratio Glucose Calculated Osmolality Calcium Magnesium Legionella pneumophila Ab Negative Preliminary micro results at discharge 10/04/16 11:53 Blood Culture - Preliminary Blood No growth at 1 day 10/04/16 11:08 Blood Culture - Preliminary Blood No growth at 1 day DS: Provider Date of admission: 10/04/16 08:50 Primary care physician: Himanshu Christine Jr., MD Attending physician on admission: Anjel Petit MD Discharging clinician: SALTY Miranda
--- NOTE | 2016-10-07 11:03 | Pulmonology Progress Note ---
Pulmonary - PN: Subj Interval history: Tristin Townsend, ANP-BC, GNP-BC, acting as scribe for Dr. Anjel Petit Mr. Perry is an 80-year-old white male who was [facility]. 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 Follow-up venograms have shown scarring but no residual thrombus. #8: High blood pressure #9: Degenerative joint disease. Left total knee replacement spring 2014. #10: Chronic allergic sinusitis #11: Gastroesophageal reflux disease #12: History of nasal polyps #13: Diverticulosis #14: BPH with normal PSA #15: Past history of cardiomyopathy with an ejection fraction of about 20%. Ejection fraction April 2015 was greater than or equal to 55%. In December 2015 ejection fraction was greater than 55%. Recent ejection fraction of 45%. Previous cardiac catheterization showed no coronary artery disease. #16: See past history 10/05/2016. The patient was seen today along with his nurse Raina and . He says he feels much better today since the initiation of IV antibiotics. He is presently being treated with Merrem and Fortaz. Sputum for Gram stain, culture and sensitivity was ordered at admission, however, has not yet been collected. He states he is having difficulty mobilizing his secretions today. He has been up and ambulating in the halls and states he has done well with this. Chest x- ray today shows continued left lower lung infiltrate. We will repeat chest x- ray tomorrow. Cold agglutinins are negative. Legionella titers pending. 10/06/2016. The patient was seen today along with his nurse Raina and his . He states that his breathing is improving every day. He is able to ambulate quite a bit in the halls yesterday and we have encouraged more of this. He reports that his cough is now dry and nonproductive. He has been unable to produce a sputum for testing. Chest x-ray today was reviewed and showed slight residual infiltrate in the left lower lobe but this is clearing nicely. The patient is on chronic Coumadin therapy secondary to atrial fibrillation as well as history of DVT/PE. INR today is dropped 1.9. We again confirmed his home dose was alternating 2.5 mg and 5 mg. He is on this dose. Will recheck INR tomorrow. Blood culture negative thus far. 10/07/2016. Patient was seen today along with Tricia Pepper RN, and his . He reports some sputum production this morning. Of note, the patient was able to aggressively ambulate in the loz[place] yesterday and states that his breathing did remarkably well. We told him that he will continue to expectorate a small amount for the next several weeks. He understands this. He denies night sweats. White count has trended down. This x-ray today shows a tiny amount of residual infiltrate in the left lower lobe, but this lags behind clinical improvement. Cold agglutinins are negative. Legionella is negative. Medications have been reviewed. Labs been reviewed. White count is 9000 with 90.8% segs; H&H 12.6/37.4; platelet count 243,000; creatinine 1.20, BUN 24, electrolytes are normal; INR 1.7 Exam (Progress Note) - Constitutional Vitals: Period Temp Pulse Resp BP Sys/Mar Pulse Ox Last 24 Hr 97.4 F-98.5 F 61-96 18-20 112-136/53-78 92-99 Exam: Chest...See above Heart no gallop Abdomen is nontender nondistended; bowel sounds are positive 4 Extremities with nothing to suggest acute deep venous thrombophlebitis Psychiatric oriented 3 Neurologic long-term motor function is intact Plan: The patient is met maximum hospital benefit and can now be safely discharged home to continue outpatient treatment. Please see my discharge summary for more information. Results - Labs CBC & BMP: 10/07/16 06:26 10/07/16 06:26 Specialty Discharge - Follow Up or Referrals
[2016-10-07] MEDS: methylPREDNISolone SOD SUC 40 MG/1 ML VIAL IV SCH (11:07)
[2016-10-07 12:16] VITALS: BP 141/70
[2016-10-07] MEDS: DEXTROSE 5% NACL 0.45% 1,000 ML IV SCH (12:26)
== END 2016-10-07 12:51 | disposition home or self-care (01) | DRG 195 ==
LOC: N.5E 08:50
PROVIDERS: ADMIT Internal Medicine Pulmonary Disease; ATTEND Internal Medicine Pulmonary Disease

== ENCOUNTER 2017-02-03 08:32 | Inpatient (IN) ==
[2017-02-03] MEDS ORDERED: diphenhydrAMINE 50 MG/1 ML VIAL ONE (08:47)
[2017-02-03] MEDS ORDERED: MEPERIDINE 25 MG/1 ML VIAL ONE (08:47)
[2017-02-03] MEDS ORDERED: BENZONATATE 100 MG CAPSULE PO ONE ×2 (08:47→10:00)
--- NOTE | 2017-02-03 09:00 | EKG Report ---
Stationary ECG Study [facility] Test Date: 02/03/2017 8:58:24 AM Pat Name: HIGINIO MALAGON Department: Room: 616 Gender: M Logistics System Engineer: CHRIS : 1935 Requested by: Jerome Jones Order Number: [id number] Reading MD: RAMOS WAHL Intervals [place] Rate: 53 P: 999 CA: 0 QRS: -69 QRSD: 129 T: 2 QT: 468 QTc: 452 Interpretive Statements ATRIAL FIBRILLATION WITH SLOW VENTRICULAR RESPONSE MARKED LEFT AXIS DEVIATION RIGHT BUNDLE BRANCH BLOCK ANTEROSEPTAL MYOCARDIAL INFARCTION, PROBABLY OLD Electronically Signed On 02-03-17 10:17:38 CDT by RAMOS WAHL [email or web address]
[2017-02-03 09:01] LABS: Basophils % 0.5 % (0.0-0.8); Eosinophils # 0.1 10*3/uL (0.0-0.87); Hematocrit 41.7 VOL% (42.0-52.0); Hemoglobin 13.9 GM/DL (14.0-18.0); Immature Granulocytes % 0.6 %; Immature Granulocytes Absolute 0.05 #; Lymphocytes # 0.8 10*3/uL (1.4-4.0); Lymphocytes % 9.7 % (21.2-54.2); Mean Corpuscular HGB Conc 33.3 GM/DL (32-36); Mean Corpuscular Hemoglobin 31 PG (27-34); Mean Corpuscular Volume 93.9 FL (87-102); Mean Platelet Volume 9.7 FL (9.6-12.0); Monocytes # 0.4 10*3/uL (0.11-0.8); Monocytes % 4.8 % (1.7-12.7); Neutrophils # 6.9 10*3/uL (1.4-7.4); Neutrophils % 83.4 % (38.7-73.9); Platelet Count 217 T/CUMM (130-400); Red Blood Count 4.44 MC/CUMM (3.8-5.5); Red Cell Distribution Width 14.6 % (9.3-17.3); White Blood Count 8.3 T/CUMM (4-12)
[2017-02-03 09:30] LABS: INR 1.2; PT Patient Result 12.7 SECS; Partial Thromboplastin Time 23.3 SECS (0-40)
[2017-02-03] MEDS ORDERED: MEPERIDINE 25 MG/1 ML VIAL IV ONE (09:45)
[2017-02-03] MEDS ORDERED: diphenhydrAMINE 50 MG/1 ML VIAL IV ONE (09:48)
[2017-02-03] MEDS ORDERED: diphenhydrAMINE 50 MG/1 ML VIAL IM ONE (10:00)
[2017-02-03] MEDS ORDERED: LIDOCAINE 1% 20 ML VIAL MISC INJ ONE (10:00)
[2017-02-03] MEDS ORDERED: LIDOCAINE 2% 20 ML VIAL RESP TX ONE (10:00)
[2017-02-03] MEDS ORDERED: LIDOCAINE 2% VISCOUS 100 ML BOTTLE SWISH/SPIT ONE (10:00)
[2017-02-03] MEDS ORDERED: MEPERIDINE 50 MG/1 ML VIAL IM ONE (10:00)
[2017-02-03 10:35] LABS: INR 1.2; PT Patient Result 12.9 SECS; Partial Thromboplastin Time 26.6 SECS (0-40)
[2017-02-03] MEDS ORDERED: MIDAZOLAM 2 MG/2 ML VIAL ONE (11:09)
[2017-02-03] MEDS ORDERED: MIDAZOLAM 2 MG/2 ML VIAL IV ONE (11:50)
[2017-02-03] MEDS ORDERED: methylPREDNISolone SOD SUC 125 MG/2 ML VIAL IV ONE (12:07)
[2017-02-03] MEDS ORDERED: methylPREDNISolone SOD SUC 125 MG/2 ML VIAL ONE (12:13)
[2017-02-03] MEDS ORDERED: ALBUTEROL/IPRATROPIUM 3 ML NEB RESP TX PRN (12:34)
--- NOTE | 2017-02-03 12:43 | Event Note ---
Outpatient diagnostic and therapeutic fiberoptic bronchoscopy. Bilateral bronchial alveolar lavage specimens sent for cytology, Gram stain, bacterial cultures, AFB stains and culture, fungal stains and culture. This is an 81-year-old white male with heart disease, steroid-dependent asthma and recurrent pneumonias for 6-8 months. He has been on various antibiotics and these have not resolved. He continues have a significant cough especially at night when he lays down. He has episodic mild episodes of diaphoresis at night. He is a little more short of breath than usual. Chest x-ray done in the office showed a small persistent right lower lung infiltrate and a small infiltrate in the posterior basilar segment of the left lower lung. For these reasons the patient's evaluated with fiberoptic bronchoscopy. Vocal cords were normal. Trachea showed some collapsibility. The linda was sharp The right mainstem bronchus was full of thick tenacious whitish appearing secretions. These extended into the right upper lung the right middle lung and the right lower lung. See photographs of retained secretions in the right lower lung and underlying erosive friable partially stenotic bronchitis. These areas were lavaged lavaged until clear. The lower lung bronchi showed moderate to severe amount of collapsibility secondary to underlying obstructive lung disease. The erosive friable bronchitis in the right lower lung bled when touched. The left mainstem bronchus was full of thick tenacious secretions. See photograph of secretions and photograph taken after these were cleared shows the left mainstem bronchus left upper lung and the left lower lung. These secretions extended all the segments of the left upper lung and left lower lung. Bronchoalveolar lavage was carried out until these areas were clear. Multiple large sputum plugs were removed from both the right and left. The patient tolerated procedure well. There were no complications. He did wheeze a little bit towards the end of procedure and I gave him 62.5 mg of Solu- Medrol IV push. The findings were much more severe than I thought they would be. Patient is a treatment failure on multiple different antibiotics as an outpatient. He will be admitted to the hospital. Impression. 1. Bilateral none resolved lower lung pneumonia. Treatment failure. 2. Erosive friable bronchitis most prominent in the right lower lung and the left lower lung 3. Steroid-dependent asthma 4. Obstructive lung disease with collapsible bronchi especially in the right lower lung and the left lower lung. 5. Retained secretions 6. Ineffective cough Plan. 1. Check bronchoscopy specimens 2. Admit to the hospital. See hospital orders
--- NOTE | 2017-02-03 13:06 | Pulmonology History & Physical ---
History of Present Illness Chief complaint: None resolved bibasilar pneumonia. Asthma. History of present illness: Mr. Perry is a 81 year old white male longtime patient of mine. 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 This patient has had repeated infections this year covering a period of 6-8 months. He has been treated aggressively at length with various antibiotics and was seen to clear but would continue to have recurrent infections. His he felt that he was better but he said that when he would lay down at night he will cough for a while and not a cough up a good bit of thick tenacious secretion. He was seen in my office yesterday. His chest x-ray had not cleared as well as expected. He had bibasilar inspiratory squeaks. He did not have any significant wheezing. I felt the patient should be evaluated with fiberoptic bronchoscopy. Today the patient was evaluated with outpatient fiberoptic bronchoscopy. Both bronchial trees were filled with thick tenacious secretions that mainly appeared whitish of these extended into all 5 lobes and in both lower lungs there was erosive friable partially stenotic bronchitis. See photographs under reports. These areas were lavaged until clear and specimens were sent for bacterial fungus and AFB studies. It would not surprise me if he had staph aureus and it would not surprise me if he had aspergillosis. Specimens were also sent for cytology but I do not expect to see cancer. Patient has heart disease and a history of atrial fib. He is in a regular sinus rhythm. There is a history of congestive heart failure. This is under good control. He is followed by Dr. Beltran Rendon. The remainder of the review of systems is negative Allergies none. Medicines. Nebulizer with albuterol solution. Allopurinol 200 mg daily. Amiodarone 200 mg daily. Baby aspirin once a day. Centrum Silver vitamin once daily. Coreg 3.125 mg p.o. twice daily. Coumadin 5 mg on Tuesdays and and 2.5 mg other days a week. This is managed by Dr. Rendon. Hydrochlorothiazide 12-1/2 mg p.o. twice daily. Miacalcin nasal spray daily. Singulair 10 mg daily. Mucinex 600 mg twice daily. KCl 10 mEq twice daily. Prednisone 10 mg daily on a multiyear basis. Trazodone 50 mg at bedtime Ventolin FHA inhaler 2 puffs 4 times daily as needed rescue. Flomax 0.4 mg p.o. Pneumovax was given in 2010. This patient gets a daily shot. Past history. Charles's hospitalization 10/04/2016 through 10/07/2016 for an acute left lower lung pneumonia which was treated with meropenem and Fortaz. Charles's hospitalization 05/08/2012 through 05/14/2012 with acute congestive heart failure secondary to systolic and diastolic dysfunction and secondary to acute atrial fib. Past history of cardiomyopathy with ejection fraction of about 25%. This was felt to be secondary to alcohol. Patient was not a particularly heavy drinker. Echocardiogram done 10/30/2013 showed ejection fraction and increased to 55% or greater. 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 History of gout. History of high blood pressure. History of colon polyps. High blood pressure. Gastroesophageal reflux disease. In December 2010 the patient had a left lower extremity deep venous thrombophlebitis with pulmonary emboli. He is on chronic Coumadin therapy managed by Dr. Rendon. Degenerative joint disease. 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 Chronic allergic sinusitis. Nasal polyps. History of relative adrenal insufficiency which is resolved. Diverticulosis. Previous sigmoid colon resection. BPH with a normal PSA. Left total knee replacement spring 2014. In September 2015 the patient had colon surgery for removal of villous adenoma. Patient had electrical cardioversion of atrial fib by Dr. Raúl Rendon in the winter 2016 Social history. Patient quit smoking in 1971. In the past he drank alcohol but not to excess he says. He is a retired realtor. He is . He put 5 children through college. His sold [employer] to [employer] several years ago. She is now retired. Family history. Positive high blood pressure. Chest x-ray. 02/03/2017. Done in my office. Heart size is normal. Pulmonary arteries are top normal. There are benign calcifications both hilar areas. Mediastinum is normal. Lung jiménez are mildly hyperinflated with small infiltrates in both bases. Lab. 02/03/2017. INR was 1.2. White blood cell count was 8300 with 83 segs 10 lymphs 5 monos. H&H is 13.9/41.7 with normal indices and normal red blood cell distribution with. Platelets were 217,000. Physical exam. Vital signs. See below. Psychiatric. Oriented 3. Patient's memory has become very poor. Pupils irises sclera conjunctiva eyelids are normal. Face is symmetrical. Salivary glands are normal. Nares are normal. Nasal turbinates are slightly erythematous with no edema. I did not see any nasal polyps. Lips become mucosal soft hard palate and pharynx are normal. Ears deferred. Neck. Symmetrical slightly kyphotic with no meningismus. No masses. Thyroid was not palpated. Lymphatics no submandibular cervical supraclavicular or epitrochlear adenopathy. Chest. Symmetrical kyphotic hyperinflated with mild prolongation of expiration. There were no significant wheezes. He has bibasilar inspiratory squeaks no chest wall tenderness. Heart. Regular. Lateral PMI. Grade 1/6 short systolic ejection murmur at the left sternal border. I hear no radiation. Abdomen. Loose abdominal musculature. The edge of the liver feels normal. Spleen is nonpalpable. Aorta cannot be palpated. No tenderness. Bowel sounds are present. and rectal deferred Extremities. Degenerative joint disease of the hands knees ankles. No clubbing. No significant edema. Skin. Extensive all appropriate and upper extremities. No cancerous infectious lesions of face hands or feet. No other areas of skin were examined. Neurologic. Cranial nerves are intact with decreased hearing acuity. Patient moves all 4 extremities. His gait is normal. Sensory exam was not done. Arterial exam. Carotid upstroke is normal with no bruits. Upper extremity pulses are palpable. Lower extremity pulses are nonpalpable. No evidence of lower extremity ischemia. Venous. Neck is in upper extremities are normal except venous sticks in the arm bled for a long time this morning before bronchoscopy. There is chronic venous stasis changes over both lower extremities. Musculoskeletal age-appropriate loss normal curvature cervical thoracic lumbar spine The remainder of the physical exam is negative. Impression. 1. Bibasilar (none resolved with outpatient treatment reversed) peer pneumonia. Suspect bacterial. Look for aspergillosis. 2. Retained pulmonary secretions and bibasal erosive friable partially stenotic bronchitis. See bronchoscopy and bronchoscopy photographs 3. Steroid-dependent asthma. Note an element of COPD with collapsible airways especially in the bases. #4 past history of atrial fib. Now in regular sinus rhythm 5. History of cardiomyopathy which I think has resolved. There is a history of congestive heart failure. 6. Gout under good control 7. Chronic Coumadin therapy 8. High blood pressure 9. History of colon polyps and villous adenoma of the colon. 10. December 2010 left lower extremity deep venous thrombophlebitis with pulmonary emboli. 11. History of gastroesophageal reflux disease 12. See past history Plan. 1. Admit to the hospital 2. Check outpatient bronchoscopy specimens from 02/03/2017 3. Solu-Medrol 62-1/2 mg IV push every 12 hours. Remember this patient takes prednisone 10 daily at home #4 Fortaz 5. Vancomycin. We will asked pharmacology to manage it. 6. Ventilation therapy. 7. Continue all home medicines 8. Daily INR and daily BMP 9. BNP. No past history of congestive heart failure 10. Inhalation therapy. 11. This patient will probably take 6 or more days to correct. Home Medications Medication Instructions Recorded Confirmed Type Allopurinol 100 mg PO DAILY 06/05/15 02/03/17 History Aspirin [Ecotrin] 81 mg PO BEDTIME 06/05/15 02/03/17 History Folic Acid/Multivit-Min/Lutein 1 tablet PO DAILY 06/05/15 02/03/17 History [Centrum Silver Chew Tab] Montelukast Tab [Singulair Tab] 10 mg PO BEDTIME 06/05/15 02/03/17 History Amiodarone HCl 200 mg PO DAILY 08/22/16 02/03/17 History Calcitonin Nasal [place] [Miacalcin 200 units ONE NARE BEDTIME 08/22/16 02/03/17 History Nasal [place]] Potassium Chloride 10 meq PO BEDTIME 08/22/16 02/03/17 History Trazodone HCl 25 mg PO BEDTIME 08/22/16 02/03/17 History hydroCHLOROthiazide 12.5 mg PO BID 08/22/16 02/03/17 History [Hydrochlorothiazide] Carvedilol [Coreg] 3.125 mg PO BID #0 10/07/16 02/03/17 Rx Warfarin [Coumadin] 5 mg PO DAILY tablet 10/07/16 02/03/17 Rx Albuterol/Ipratropium Neb [Duoneb] 3 ml RESP TX BID 02/03/17 02/03/17 History Tamsulosin [Flomax] 0.4 mg PO AC LUNCH 02/03/17 02/03/17 History guaiFENesin ER TAB [Mucinex] 600 mg PO BID 02/03/17 02/03/17 History hydroCHLOROthiazide 12.5 mg PO AC LUNCH 02/03/17 02/03/17 History [Hydrochlorothiazide] predniSONE TAB [PredniSONE] 10 mg PO DAILY 02/03/17 02/03/17 History Allergies Allergy/AdvReac Type Severity Reaction Status Date / Time No Known Allergies Allergy Verified 02/03/17 08:53 Medical,Surgical,& Family Hx - Medical History Cardio: History of: Cardiac Dysrhythmia (atrial fib), Congenital Heart Disease, CHF (in the past), CAD, Cardiovascular Problems (cardiomyopathy) Neurology: No history of: Seizures HEENT: History of: HEENT Problems (sinus surgery) Endocrine: No history of: Thyroid Disorder Rheumatology: History of;: Gout Respiratory: History of: Asthma Gastrointestinal: History of: Hepatitis (in high school), Polyps Hematology: History of: Clotting Problems (DVT) No history of: Blood Transfusion Reaction Other: No history of: Anesthesia Reactions, Cancer - Surgical History Cardiac Surgeries: Sugical HX of: Cardiac Catheterization HEENT Surgeries: Surgical HX of: Eye Surgery (cataracts), Tonsilectomy & Adenoidectomy Abdominal Surgeries: Surgical HX of: Colonoscopy, EGD Patient denies: Appendectomy, Cholecystectomy Orthopedic Surgeries: Surgical HX of;: Orthopedic Surgery (forearm), Total Knee Replacement (LEFT) - Family History Family History: Reports;: Family Cancer (brother- lung), Family Hypertension ( HTN) Denies;: Family Anesthesia Reaction, Family Diabetes, Family Heart Disease, Family Psychiatric Problems, Family Stroke - Social History Smoking Status: Former smoker Frequency of Alcohol Use: None Type of Drug Use: None Results - Labs CBC & BMP: 02/03/17 08:52 Quality Measures - VTE Contraindication to Pharmacological VTE Prophylaxis: Already on Theraputic Agent , No Prophylaxis Needed Exam (Pulmonay) H&P - Constitutional Vitals: Period Temp Pulse Resp BP Sys/Mar Pulse Ox Last 24 Hr 97.4 F 51-65 12-20 135-160/68-80 92-99
[2017-02-03] MEDS: DEXTROSE 5% NACL 0.45% 1,000 ML IV SCH (14:27)
[2017-02-03 14:44] LABS: Basophils % 0.1 % (0.0-0.8); Eosinophils % 0.1 % (0.00-10.9); Hematocrit 40.8 VOL% (42.0-52.0); Hemoglobin 13.5 GM/DL (14.0-18.0); Immature Granulocytes % 0.4 %; Immature Granulocytes Absolute 0.03 #; Lymphocytes # 0.6 10*3/uL (1.4-4.0); Lymphocytes % 8.3 % (21.2-54.2); Mean Corpuscular HGB Conc 33.1 GM/DL (32-36); Mean Corpuscular Hemoglobin 31 PG (27-34); Mean Corpuscular Volume 93.8 FL (87-102); Mean Platelet Volume 9.2 FL (9.6-12.0); Monocytes # 0.2 10*3/uL (0.11-0.8); Monocytes % 2.8 % (1.7-12.7); Neutrophils # 5.9 10*3/uL (1.4-7.4); Neutrophils % 88.3 % (38.7-73.9); Platelet Count 237 T/CUMM (130-400); Red Blood Count 4.35 MC/CUMM (3.8-5.5); Red Cell Distribution Width 14.5 % (9.3-17.3); White Blood Count 6.7 T/CUMM (4-12)
[2017-02-03 15:25] LABS: Albumin 3.3 G/DL (3.4-5.0); Bilirubin,Total 0.7 MG/DL (0.2-1.0); Calcium 8.8 MG/DL (8.5-10.1); Magnesium 2.4 MG/DL (1.8-2.4); Osmolality,Calculated 285.4 MOS/KG (273-304); Potassium 4.6 MMOL/L (3.5-5.1); Thyroid Stimulating Hormone 0.637 uIU/ml (0.358-3.74); Total Protein 5.8 G/DL (6.4-8.3)
[2017-02-03 16:00] LABS: Apearance,Urine CLEAR (Clear); Bilirubin,Urine Negative (Negative); Blood, Urine Negative (Negative); Glucose,Urine (UA) Negative (Negative); Ketones,Urine Negative (Negative); Nitrite,Urine Negative (Negative); Protein,Urine Negative; RBC,Urine 1 /HPF (0-4); Squamous Epithelial Cell,Urine Occasional /HPF (0-10); Urine Color Yellow (Yellow); Urine Urobilinogen < 2.0 EU/DL (0.2-1.0); WBC,Urine <1 /HPF (0-6)
[2017-02-03] MEDS: VANCOMYCIN INJ 1,250 MG in SODIUM CHLORIDE 0.9% 250 ML IV SCH (17:40)
[2017-02-03] MEDS: ALBUTEROL/IPRATROPIUM 3 ML NEB RESP TX SCH (18:45)
[2017-02-03] MEDS: CARVEDILOL 3.125 MG TABLET PO SCH (22:29)
[2017-02-03] MEDS: POTASSIUM CHLORIDE 10 MEQ TABLET PO SCH (22:29)
[2017-02-03] MEDS: hydroCHLOROthiazide 12.5 MG CAPSULE PO SCH (22:29)
[2017-02-03] MEDS: traZODone 50 MG TABLET PO SCH (22:29)
[2017-02-04] MEDS: ALBUTEROL/IPRATROPIUM 3 ML NEB RESP TX SCH ×4 (00:17→19:09)
[2017-02-04] MEDS: methylPREDNISolone SOD SUC 125 MG/2 ML VIAL IV SCH ×2 (00:53→13:39)
[2017-02-04 03:54] LABS: Basophils % 0.1 % (0.0-0.8); Hematocrit 37.1 VOL% (42.0-52.0); Hemoglobin 12.6 GM/DL (14.0-18.0); Immature Granulocytes % 0.5 %; Immature Granulocytes Absolute 0.04 #; Lymphocytes # 0.3 10*3/uL (1.4-4.0); Lymphocytes % 3.5 % (21.2-54.2); Mean Corpuscular Hemoglobin 31 PG (27-34); Mean Corpuscular Volume 92.3 FL (87-102); Mean Platelet Volume 9.8 FL (9.6-12.0); Monocytes # 0.2 10*3/uL (0.11-0.8); Monocytes % 1.9 % (1.7-12.7); Neutrophils # 7.9 10*3/uL (1.4-7.4); Platelet Count 227 T/CUMM (130-400); Red Blood Count 4.02 MC/CUMM (3.8-5.5); Red Cell Distribution Width 14.3 % (9.3-17.3); White Blood Count 8.4 T/CUMM (4-12)
[2017-02-04 04:04] LABS: INR 1.3; PT Patient Result 13.9 SECS
[2017-02-04 04:25] LABS: Calcium 8.1 MG/DL (8.5-10.1); Magnesium 2.3 MG/DL (1.8-2.4); Osmolality,Calculated 288.4 MOS/KG (273-304); Potassium 4.6 MMOL/L (3.5-5.1)
[2017-02-04 05:37] LABS: Lymphocytes 2 % (20-55); Segmented Neutrophils 94 % (50-85); Total Cells Counted 100
[2017-02-04 05:38] LABS: Hypochromasia 1+; Microcytosis Slight; Ovalocytes Slight; Platelet Estimate Normal
[2017-02-04] MEDS: MULTIVITAMIN (CENTRUM) TABLET PO SCH (09:13)
[2017-02-04] MEDS: TAMSULOSIN 0.4 MG CAPSULE PO SCH (09:13)
[2017-02-04] MEDS: POTASSIUM CHLORIDE 10 MEQ TABLET PO SCH ×2 (09:13→21:02)
[2017-02-04] MEDS: CARVEDILOL 3.125 MG TABLET PO SCH ×2 (09:13→21:02)
[2017-02-04] MEDS: ALLOPURINOL 100 MG TABLET PO SCH (09:14)
[2017-02-04] MEDS: ASPIRIN EC 81 MG TABLET PO SCH (09:15)
[2017-02-04] MEDS: MONTELUKAST 10 MG TABLET PO SCH (09:15)
[2017-02-04] MEDS: hydroCHLOROthiazide 12.5 MG CAPSULE PO SCH ×2 (09:15→14:46)
[2017-02-04] MEDS: CALCITONIN NASAL SPRAY 3.7 ML BOTTLE ONE NARE SCH (09:16)
--- NOTE | 2017-02-04 11:01 | Pulmonology Progress Note ---
Pulmonary - PN: Subj Interval history: The patient is an 81-year-old white man that has been having trouble with asthmatic bronchitis and came in yesterday and had a therapeutic bronchoscopy. He had a lot of thick secretions removed and he says he felt much better last night. He said he did not wake up coughing at all. He feels like his breathing is much better and he is not short of breath at all. He is wanting to go home. So far his cultures are negative. His chest x-ray does not show any infiltrates. He is getting IV vancomycin at the present time. He is tolerating his treatment quite well. Exam (Progress Note) - Constitutional Vitals: Period Temp Pulse Resp BP Sys/Mar Pulse Ox Last 24 Hr 97.5 F-98.1 F 50-87 12-20 118-160/52-89 89-100 General appearance: normal weight, no acute distress - Head Head exam: Present: normal inspection, normocephalic - Eye Eye exam: Present: EOMI. Absent: scleral icterus Pupils: Present: SOWMYA - ENT ENT exam: Present: normal exam - Neck Neck exam: Absent: lymphadenopathy, thyromegaly - Respiratory Respiratory exam: Present: clear to auscultation bilaterally. Absent: wheezes - Cardiovascular Cardiovascular exam: Present: regular rate and rhythm. Absent: gallop, systolic murmur - GI/Abdominal GI/Abdominal exam: Present: normal bowel sounds, soft. Absent: organomegaly, tenderness - Extremities Exam Extremities exam: Absent: calf tenderness, edema - Neurological Exam Neurological exam: Present: alert, oriented X3, CN II-XII intact - Psychiatric Psychiatric exam: Present: normal affect - Skin Skin exam: Present: warm, dry Results - Labs CBC & BMP: 02/04/17 02:29 02/04/17 02:29 Labs: Cultures are negative so far. Assessment and Plan (1) Nonischemic cardiomyopathy Status: Acute Assessment and plan: The patient's heart rate and blood pressure are stable and he has no signs of CHF now. Current Visit: No (2) Asthma Status: Acute Assessment and plan: Patient has a history of asthma with possible mucoid impaction syndrome. He had a therapeutic bronchoscopy yesterday and cleared out thick secretions. He says he feels much better now. He is not short of breath and not having any wheezing. If his cultures are negative we will let him go home soon. Current Visit: No Specialty Discharge - Follow Up or Referrals Follow up with: Anjel Petit MD [Family Provider] -
[2017-02-04] MEDS: DEXTROSE 5% NACL 0.45% 1,000 ML IV SCH (11:11)
--- NOTE | 2017-02-04 14:31 | XRay Report ---
History: Pneumonia Date: 02/04/2017 Study: Chest x-ray PA and lateral Comparison exam: October 07, 2016 The cardiac silhouette is borderline to mildly prominent. The mediastinal contours are unchanged. The pulmonary vasculature is not engorged. There is mild aortic arch calcification. There are emphysematous changes within the lungs. There is some chronic interstitial disease in either lung base. There is no definite acute infiltrate. There is no pleural effusion. Osseous structures are similar with osteopenia and mild thoracic spondylosis. Impression: No definite acute process compared to the previous study PROCEDURE INTERPRETED AT [facility] DEPARTMENT OF RADIOLOGY Final Report Signed by: Dr. Lakesha Burns
[2017-02-04] MEDS: VANCOMYCIN INJ 1,250 MG in SODIUM CHLORIDE 0.9% 250 ML IV SCH (17:12)
[2017-02-04] MEDS: WARFARIN 2.5 MG TABLET PO SCH (17:58)
[2017-02-04] MEDS: traZODone 50 MG TABLET PO SCH (21:02)
[2017-02-05] MEDS: ALBUTEROL/IPRATROPIUM 3 ML NEB RESP TX SCH ×4 (00:03→19:24)
[2017-02-05] MEDS: DEXTROSE 5% NACL 0.45% 1,000 ML IV SCH ×2 (00:30→06:07)
[2017-02-05] MEDS: methylPREDNISolone SOD SUC 125 MG/2 ML VIAL IV SCH (00:40)
[2017-02-05 05:58] LABS: INR 1.5; PT Patient Result 15.8 SECS
[2017-02-05] MEDS: CARVEDILOL 3.125 MG TABLET PO SCH ×2 (08:44→21:05)
[2017-02-05] MEDS: ASPIRIN EC 81 MG TABLET PO SCH (08:44)
[2017-02-05] MEDS: ALLOPURINOL 100 MG TABLET PO SCH (08:45)
[2017-02-05] MEDS: TAMSULOSIN 0.4 MG CAPSULE PO SCH (08:45)
[2017-02-05] MEDS: POTASSIUM CHLORIDE 10 MEQ TABLET PO SCH ×2 (08:45→21:05)
[2017-02-05] MEDS: hydroCHLOROthiazide 12.5 MG CAPSULE PO SCH ×2 (08:45→14:29)
[2017-02-05] MEDS: MULTIVITAMIN (CENTRUM) TABLET PO SCH (08:45)
[2017-02-05] MEDS: MONTELUKAST 10 MG TABLET PO SCH (08:45)
[2017-02-05] MEDS: CALCITONIN NASAL SPRAY 3.7 ML BOTTLE ONE NARE SCH (08:49)
--- NOTE | 2017-02-05 10:29 | Pulmonology Progress Note ---
Pulmonary - PN: Subj Interval history: The patient is an 81-year-old white man that has been having trouble with asthmatic bronchitis and came in yesterday and had a therapeutic bronchoscopy. He had a lot of thick secretions removed and he says he is feeling much better now. He said he slept well and is not coughing much now. He feels like his shortness of breath is much better. He seems to be tolerating his treatments fairly well. So far his cultures are negative. Exam (Progress Note) - Constitutional Vitals: Period Temp Pulse Resp BP Sys/Mar Pulse Ox Last 24 Hr 97.3 F-98.2 F 54-67 16-22 121-148/55-73 93-99 Exam: General appearance: normal weight, no acute distress, he certainly looks comfortable without any respiratory distress. - Head Head exam: Present: normal inspection, normocephalic - Eye Eye exam: Present: EOMI. Absent: scleral icterus Pupils: Present: SOWMYA - ENT ENT exam: Present: normal exam - Neck Neck exam: Absent: lymphadenopathy, thyromegaly - Respiratory Respiratory exam: Present: clear to auscultation bilaterally. I do not hear any rales or wheezing at present. - Cardiovascular Cardiovascular exam: Present: regular rate and rhythm. Absent: gallop, systolic murmur - GI/Abdominal GI/Abdominal exam: Present: normal bowel sounds, soft. Absent: organomegaly, tenderness - Extremities Exam Extremities exam: Absent: calf tenderness, edema - Neurological Exam Neurological exam: Present: alert, oriented X3, CN II-XII intact - Psychiatric Psychiatric exam: Present: normal affect - Skin Skin exam: Present: warm, dry Results - Labs CBC & BMP: 02/04/17 02:29 02/04/17 02:29 Assessment and Plan (1) Nonischemic cardiomyopathy Status: Acute Assessment and plan: The patient's heart rate and blood pressure are stable and he has no signs of CHF now. Current Visit: No (2) Asthma Status: Acute Assessment and plan: Patient has a history of asthma with possible mucoid impaction syndrome. He had a therapeutic bronchoscopy yesterday and cleared out thick secretions. He says he feels much better now. So far his cultures are negative. He wants to go home soon. Will adjust his medicines and if he is doing well ,he can probably go home tomorrow. Current Visit: No Specialty Discharge - Follow Up or Referrals Follow up with: Anjel Petit MD [Family Provider] -
[2017-02-05] MEDS: predniSONE 20 MG TABLET PO SCH (11:27)
[2017-02-05] MEDS: VANCOMYCIN INJ 1,250 MG in SODIUM CHLORIDE 0.9% 250 ML IV SCH (17:15)
[2017-02-05] MEDS: WARFARIN 2.5 MG TABLET PO SCH (18:15)
[2017-02-05] MEDS: traZODone 50 MG TABLET PO SCH (21:05)
[2017-02-06] MEDS: ALBUTEROL/IPRATROPIUM 3 ML NEB RESP TX SCH ×4 (00:36→20:02)
[2017-02-06 06:04] LABS: INR 1.5; PT Patient Result 15.9 SECS
[2017-02-06] MEDS: DEXTROSE 5% NACL 0.45% 1,000 ML IV SCH (06:28)
--- NOTE | 2017-02-06 09:34 | Pulmonology Progress Note ---
Pulmonary - PN: Subj Interval history: This 81-year-old man came in with a cough this been going on for several months. Dr. Atwood bronchoscoped him last week and removed a lot of thick secretions. Cultures have been negative. Currently he is on vancomycin and Fortaz. Since nothing is grown out I will stop the vancomycin. He did well until started having another coughing spell last night. He is on some prednisone. He is chronically on Coumadin for atrial fibrillation. Patient is anxious to go home but not read is felt he needs treatment for a few more days. He may need another bronchoscopy if the cough gets worse. Exam (Progress Note) - Constitutional Vitals: Period Temp Pulse Resp BP Sys/Mar Pulse Ox Last 24 Hr 97.0 F-98.5 F 51-76 16-20 128-141/59-72 90-99 Exam: Patient's alert seems oriented. Vital signs normal. Pupils react to light. Throat is clear. Neck supple no bruits. Chest reveals some mild expiratory wheezes. Heart normal rate rhythm no murmurs. Abdomen soft nontender no masses. Extremities no clubbing cyanosis or edema. Calves nontender. Results - Labs CBC & BMP: 02/04/17 02:29 02/04/17 02:29 Lab Results: I have reviewed the past 24 hour labs Assessment and Plan (1) Acute bronchitis Status: Acute Assessment and plan: Still has some fairly thick secretions. Will add Pulmozyme. Encourage patient to stay a couple more days at least. Current Visit: Yes (2) Nonischemic cardiomyopathy Status: Acute Assessment and plan: No signs of congestive heart failure at present. Current Visit: No (3) Chronic obstructive lung disease Status: Acute Assessment and plan: Continuing bronchodilators. Add Pulmozyme. Current Visit: No (4) History of atrial fibrillation Status: Chronic Assessment and plan: On chronic anticoagulants. Current Visit: No Specialty Discharge - Follow Up or Referrals Follow up with: Anjel Petit MD [Family Provider] -
[2017-02-06] MEDS: MULTIVITAMIN (CENTRUM) TABLET PO SCH (09:44)
[2017-02-06] MEDS: hydroCHLOROthiazide 12.5 MG CAPSULE PO SCH ×2 (09:44→14:28)
[2017-02-06] MEDS: ALLOPURINOL 100 MG TABLET PO SCH (09:44)
[2017-02-06] MEDS: ASPIRIN EC 81 MG TABLET PO SCH (09:44)
[2017-02-06] MEDS: POTASSIUM CHLORIDE 10 MEQ TABLET PO SCH ×2 (09:44→21:45)
[2017-02-06] MEDS: CARVEDILOL 3.125 MG TABLET PO SCH ×2 (09:44→21:45)
[2017-02-06] MEDS: predniSONE 20 MG TABLET PO SCH (09:45)
[2017-02-06] MEDS: TAMSULOSIN 0.4 MG CAPSULE PO SCH (09:45)
[2017-02-06] MEDS: MONTELUKAST 10 MG TABLET PO SCH (09:45)
[2017-02-06] MEDS: CALCITONIN NASAL SPRAY 3.7 ML BOTTLE ONE NARE SCH (09:45)
--- NOTE | 2017-02-06 12:18 | Pathology Report from [facility] ---
[facility] [place] ACCESSION # : [id number] PATIENT NAME : Handy Perry ORDERING DR : TAVIA MOON MD CLINICAL HX: Persistent cough, sputum production POST-OP DX: Same SPECIMEN INFO: Washing,Bronchial,KENZIE - 25 [address] [place], cloudy CLASS: I CLASS COMMENTS: Suppurative inflammation and debrisCELL BLOCK: Same CLASS LEGEND: CLASS 0 Material inadequate for diagnosis because of (see comment) CLASS I Absence of atypical or abnormal cells CLASS II Atypical Cytology but no evidence of malignancy CLASS III Cytology suggestive of but not conclusive for malignancy CLASS IV Cytology strongly suggestive of malignancy CLASS V Cytology conclusive for malignancy COLLECTED DATE: 02/03/2017 [facility] REPORT DATE: 02/06/2017 ELECTRONICALLY SIGNED BY: Aki Beckett M.D. 02/06/2017 - 8:54:41 [facility]
[2017-02-06] MEDS: WARFARIN 2.5 MG TABLET PO SCH (17:33)
[2017-02-06] MEDS: DORNASE ALFA 2.5 MG/2.5 ML VIAL RESP TX SCH (20:02)
[2017-02-06] MEDS: traZODone 50 MG TABLET PO SCH (21:45)
[2017-02-07] MEDS: ALBUTEROL/IPRATROPIUM 3 ML NEB RESP TX SCH ×4 (01:00→19:11)
[2017-02-07] MEDS: DORNASE ALFA 2.5 MG/2.5 ML VIAL RESP TX SCH ×2 (07:10→19:11)
--- NOTE | 2017-02-07 08:05 | XRay Report ---
2 view chest 02/07/2017 4:00 AM Indication: Shortness of breath, pneumonia Comparison: February 04, 2017 at 0804 hours Findings: Cardiomediastinal contours are stable. Mild stranding densities within the posterior left lung base on lateral projection. No acute osseous abnormalities. Visualized upper abdomen demonstrates no acute pathology. Impression: Faint stranding densities within the posterior left lung base on lateral projection, atelectasis versus mild infectious process PROCEDURE INTERPRETED AT [facility] DEPARTMENT OF RADIOLOGY Final Report Signed by: Greyson Mujica
--- NOTE | 2017-02-07 09:18 | Pulmonology Progress Note ---
Pulmonary - PN: Subj Interval history: This 81-year-old man came in with a cough this been going on for several months. Dr. Petit bronchoscoped him last week and removed a lot of thick secretions. Cultures have been negative. Currently he is on vancomycin and Fortaz. Since nothing is grown out I will stop the vancomycin. He did well until started having another coughing spell last night. He is on some prednisone. He is chronically on Coumadin for atrial fibrillation. Patient is anxious to go home but not read is felt he needs treatment for a few more days. He may need another bronchoscopy if the cough gets worse. 02/07/2017 patient now coughing up sputum more easily. I think 1 more night with nebulized Pulmozyme along with his IV antibiotics would be enough. Hopefully can be discharged tomorrow on oral medications. Exam (Progress Note) - Constitutional Vitals: Period Temp Pulse Resp BP Sys/Mar Pulse Ox Last 24 Hr 97.3 F-98.4 F 58-88 18-20 133-152/60-80 90-99 Exam: Patient's alert seems oriented. Vital signs normal. Pupils react to light. Throat is clear. Neck supple no bruits. Chest reveals some mild expiratory rhonchi. Heart normal rate rhythm no murmurs. Abdomen soft nontender no masses. Extremities no clubbing cyanosis or edema. Calves nontender. Results - Labs CBC & BMP: 02/04/17 02:29 02/04/17 02:29 Lab Results: I have reviewed the past 24 hour labs - Diagnostic Findings Procedure: Chest x-ray: image reviewed by me (Essentially clear) Assessment and Plan (1) Acute bronchitis Status: Acute Assessment and plan: Still has some fairly thick secretions. Will add Pulmozyme. Encourage patient to stay a couple more days at least. 02/07/2017 this is improved. Sputum is thinner now. Bronchial wash cultures were negative. On empiric Fortaz. Plan discharge tomorrow with oral Omnicef if stable. Current Visit: Yes (2) Nonischemic cardiomyopathy Status: Acute Assessment and plan: No signs of congestive heart failure at present. 02/07/2017 chest x-ray certainly does not show any signs of heart failure. Current Visit: No (3) Chronic obstructive lung disease Status: Acute Assessment and plan: Continuing bronchodilators. Add Pulmozyme. 02/07/2017 producing sputum a lot easier now Current Visit: No (4) History of atrial fibrillation Status: Chronic Assessment and plan: On chronic anticoagulants. 02/07/2017 controlled rate. Appears to be paroxysmal atrial fibrillation. Current Visit: No Specialty Discharge - Follow Up or Referrals Follow up with: Anjel Petit MD [Family Provider] -
[2017-02-07] MEDS: MULTIVITAMIN (CENTRUM) TABLET PO SCH (09:47)
[2017-02-07] MEDS: ALLOPURINOL 100 MG TABLET PO SCH (09:47)
[2017-02-07] MEDS: CARVEDILOL 3.125 MG TABLET PO SCH ×2 (09:47→20:58)
[2017-02-07] MEDS: hydroCHLOROthiazide 12.5 MG CAPSULE PO SCH ×2 (09:47→15:01)
[2017-02-07] MEDS: POTASSIUM CHLORIDE 10 MEQ TABLET PO SCH ×2 (09:48→20:57)
[2017-02-07] MEDS: TAMSULOSIN 0.4 MG CAPSULE PO SCH (09:48)
[2017-02-07] MEDS: predniSONE 20 MG TABLET PO SCH (09:48)
[2017-02-07] MEDS: ASPIRIN EC 81 MG TABLET PO SCH (09:48)
[2017-02-07] MEDS: MONTELUKAST 10 MG TABLET PO SCH (09:48)
[2017-02-07] MEDS: CALCITONIN NASAL SPRAY 3.7 ML BOTTLE ONE NARE SCH (09:49)
[2017-02-07] MEDS ORDERED: WARFARIN 5 MG TABLET PO SCH (18:00)
[2017-02-07] MEDS: traZODone 50 MG TABLET PO SCH (20:58)
[2017-02-08] MEDS: ALBUTEROL/IPRATROPIUM 3 ML NEB RESP TX SCH ×2 (00:13→07:16)
[2017-02-08] MEDS: DORNASE ALFA 2.5 MG/2.5 ML VIAL RESP TX SCH (07:24)
[2017-02-08 08:16] VITALS: BP 147/60
[2017-02-08] MEDS ORDERED: CALCITONIN NASAL SPRAY 3.7 ML BOTTLE ONE NARE SCH (09:00)
[2017-02-08] MEDS ORDERED: CEFDINIR 300 MG CAPSULE PO SCH (09:00)
--- NOTE | 2017-02-08 09:01 | Pulmonology Progress Note ---
Pulmonary - PN: Subj Interval history: This 81-year-old man came in with a cough this been going on for several months. Dr. Petit bronchoscoped him last week and removed a lot of thick secretions. Cultures have been negative. Currently he is on vancomycin and Fortaz. Since nothing is grown out I will stop the vancomycin. He did well until started having another coughing spell last night. He is on some prednisone. He is chronically on Coumadin for atrial fibrillation. Patient is anxious to go home but not read is felt he needs treatment for a few more days. He may need another bronchoscopy if the cough gets worse. 02/07/2017 patient now coughing up sputum more easily. I think 1 more night with nebulized Pulmozyme along with his IV antibiotics would be enough. Hopefully can be discharged tomorrow on oral medications. 02/08/2017 patient feeling better. Not coughing as much. Lungs sound clear. Will discharge on oral Omnicef 300 mg twice daily for 5 days. Follow up with Dr. Atwood in 2 weeks. Exam (Progress Note) - Constitutional Vitals: Period Temp Pulse Resp BP Sys/Mar Pulse Ox Last 24 Hr 97.4 F-98.0 F 54-70 16-18 115-147/51-79 90-98 Exam: Patient's alert seems oriented. Vital signs normal. Pupils react to light. Throat is clear. Neck supple no bruits. Chest slightly prolonged expiratory phase but no wheezes or rhonchi.. Heart normal rate rhythm no murmurs. Abdomen soft nontender no masses. Extremities no clubbing cyanosis or edema. Calves nontender. Results - Labs CBC & BMP: 02/04/17 02:29 02/04/17 02:29 Lab Results: I have reviewed the past 24 hour labs - Diagnostic Findings Procedure: Chest x-ray: image reviewed by me (Essentially clear) Assessment and Plan (1) Acute bronchitis Status: Acute Assessment and plan: Still has some fairly thick secretions. Will add Pulmozyme. Encourage patient to stay a couple more days at least. 02/07/2017 this is improved. Sputum is thinner now. Bronchial wash cultures were negative. On empiric Fortaz. Plan discharge tomorrow with oral Omnicef if stable. 02/08/2017 improved. Home with Omnicef. Continue prednisone 20 mg daily. Follow-up [address] Petit. Current Visit: Yes (2) Nonischemic cardiomyopathy Status: Acute Assessment and plan: No signs of congestive heart failure at present. 02/07/2017 chest x-ray certainly does not show any signs of heart failure. Current Visit: No (3) Chronic obstructive lung disease Status: Acute Assessment and plan: Continuing bronchodilators. Add Pulmozyme. 02/07/2017 producing sputum a lot easier now 02/08/2017 continuing previous home medicines for this Current Visit: No (4) History of atrial fibrillation Status: Chronic Assessment and plan: On chronic anticoagulants. 02/07/2017 controlled rate. Appears to be paroxysmal atrial fibrillation. Current Visit: No Specialty Discharge - Follow Up or Referrals Follow up with: Anjel Petit MD [Family Provider] -
[2017-02-08] MEDS: ASPIRIN EC 81 MG TABLET PO SCH (09:17)
[2017-02-08] MEDS: MONTELUKAST 10 MG TABLET PO SCH (09:17)
[2017-02-08] MEDS: TAMSULOSIN 0.4 MG CAPSULE PO SCH (09:17)
[2017-02-08] MEDS: CARVEDILOL 3.125 MG TABLET PO SCH (09:17)
[2017-02-08] MEDS: ALLOPURINOL 100 MG TABLET PO SCH (09:17)
[2017-02-08] MEDS: POTASSIUM CHLORIDE 10 MEQ TABLET PO SCH (09:17)
[2017-02-08] MEDS: hydroCHLOROthiazide 12.5 MG CAPSULE PO SCH (09:17)
[2017-02-08] MEDS: MULTIVITAMIN (CENTRUM) TABLET PO SCH (09:17)
[2017-02-08] MEDS: predniSONE 20 MG TABLET PO SCH (09:18)
== END 2017-02-08 10:35 | disposition home or self-care (01) | DRG 166 ==
LOC: N.PULM 08:32 → N.SDSINP 08:38 → N.5E 13:50
PROVIDERS: ADMIT Internal Medicine Pulmonary Disease; ATTEND Internal Medicine Pulmonary Disease

== ENCOUNTER 2018-04-01 10:06 | Inpatient (IN) ==
[2018-04-01] MEDS ORDERED: LEVOFLOXACIN INJ 750 MG in PREMIX 1 EACH IV STA (10:29)
[2018-04-01] MEDS ORDERED: methylPREDNISolone SOD SUC 125 MG/2 ML VIAL IV STA (10:29)
[2018-04-01] MEDS ORDERED: ONDANSETRON 4 MG/2 ML VIAL IV STA (10:29)
[2018-04-01] MEDS ORDERED: ALBUTEROL 2.5 MG/3 ML NEB RESP TX SCH (10:30)
[2018-04-01 10:52] LABS: Basophils # 0.1 10*3/uL (0.0-0.2); Basophils % 0.6 % (0.0-0.8); Eosinophils # 1.8 10*3/uL (0.0-0.87); Eosinophils % 15.3 % (0.00-10.9); Hematocrit 33.8 VOL% (42.0-52.0); Hemoglobin 10.6 GM/DL (14.0-18.0); Immature Granulocytes % 0.8 %; Immature Granulocytes Absolute 0.09 #; Lymphocytes # 1.1 10*3/uL (1.4-4.0); Lymphocytes % 9.7 % (21.2-54.2); Mean Corpuscular HGB Conc 31.4 GM/DL (32-36); Mean Corpuscular Hemoglobin 27 PG (27-34); Mean Corpuscular Volume 87.3 FL (87-102); Mean Platelet Volume 8.9 FL (9.6-12.0); Monocytes # 1.1 10*3/uL (0.11-0.8); Monocytes % 9.8 % (1.7-12.7); Neutrophils # 7.4 10*3/uL (1.4-7.4); Neutrophils % 63.8 % (38.7-73.9); Platelet Count 381 T/CUMM (130-400); Red Blood Count 3.87 MC/CUMM (3.8-5.5); Red Cell Distribution Width 18.9 % (9.3-17.3); White Blood Count 11.5 T/CUMM (4-12)
[2018-04-01 11:08] LABS: INR 4.5
[2018-04-01 11:11] LABS: Atypical Lymphocytes Few; Eosinophils 18 % (0-10); Hypochromasia 1+; Lymphocytes 7 % (20-55); Segmented Neutrophils 69 % (50-85); Total Cells Counted 100
[2018-04-01 11:12] LABS: Acanthocytes Few; Elliptocytes 1+; Microcytosis 1+; Platelet Estimate Normal
[2018-04-01 11:13] LABS: PT Patient Result 44.5 SECS; Partial Thromboplastin Time 46.9 SECS (0-40); Poikilocytosis 1+
[2018-04-01 11:27] LABS: Alanine Aminotransferase 18 U/L (16-61); Albumin 2.4 G/DL (3.4-5.0); Alkaline Phosphatase 71 U/L (45-117); Aspartate Amino Transferase 15 U/L (0-37); Blood Urea Nitrogen 26 MG/DL (7-18); Calcium 9.1 MG/DL (8.5-10.1); Glucose 107 MG/DL (74-106); Osmolality,Calculated 283.4 MOS/KG (273-304); Potassium 4.1 MMOL/L (3.5-5.1); Sodium 140 MMOL/L (136-145); Total Protein 5.7 G/DL (6.4-8.3); Troponin I 0.027 NG/ML (0.00-0.045)
[2018-04-01 11:29] LABS: Amorphous Crystals,Urine Occasional /HPF (Few); Apearance,Urine CLEAR (Clear); Bacteria,Urine Occasional /HPF (Few); Bilirubin,Urine Negative (Negative); Blood, Urine Negative (Negative); Glucose,Urine (UA) Negative (Negative); Hyaline Casts,Urine 3 /LPF (0-3); Ketones,Urine Negative (Negative); Mucus,Urine Occasional /LPF (Occasional); Nitrite,Urine Negative (Negative); Protein,Urine Negative; RBC,Urine 1 /HPF (0-4); Squamous Epithelial Cell,Urine Occasional /HPF (0-10); Urine Specific Gravity 1.019 (1.001-1.035); WBC,Urine <1 /HPF (0-6)
[2018-04-01 11:31] LABS: Urine Color Yellow (Yellow)
[2018-04-01] MEDS ORDERED: FUROSEMIDE 40 MG/4 ML VIAL IV STA (12:17)
[2018-04-01 12:36] LABS: ABG Base Excess 2.5 MMOL/L (-2.5-2.5); ABG HCO3 26.3 MMOL/L (20-26); ABG Oxygen Saturation 78.3 % (95-100); ABG PCO2 41.1 MM HG (35-48); ABG PH 7.427 (7.35-7.45); ABG PO2 44.4 MM HG (80-95); ABG TCO2 24.7 MMOL/L (23-27)
[2018-04-01] MEDS ORDERED: ACETAMINOPHEN 325 MG TABLET PO PRN (13:29)
[2018-04-01] MEDS ORDERED: ONDANSETRON 4 MG/2 ML VIAL IV PRN (13:29)
[2018-04-01] MEDS ORDERED: ALBUTEROL 2.5 MG/3 ML NEB RESP TX PRN (13:34)
[2018-04-01] MEDS ORDERED: cephALEXin 500 MG CAPSULE PO SCH (14:00)
[2018-04-01] MEDS ORDERED: CLINDAMYCIN 300 MG CAPSULE PO SCH (14:00)
[2018-04-01] MEDS: BUDESONIDE/FORMOTEROL 160-4.5 INHALER 6 GM INH SCH ×2 (15:17→22:37)
[2018-04-01] MEDS: FUROSEMIDE 40 MG/4 ML VIAL IV SCH (15:26)
[2018-04-01] MEDS: MONTELUKAST 10 MG TABLET PO SCH (16:40)
[2018-04-01] MEDS: ASPIRIN EC 81 MG TABLET PO SCH (16:40)
[2018-04-01] MEDS: cefTAZidime 1,000 MG in SYRINGE 1 EACH IV SCH (16:41)
[2018-04-01] MEDS: MEROPENEM 1,000 MG in SODIUM CHLORIDE 0.9% 100 ML IV SCH (16:48)
[2018-04-01] MEDS: POTASSIUM CHLORIDE 10 MEQ TABLET PO SCH (17:13)
[2018-04-01] MEDS: TAMSULOSIN 0.4 MG CAPSULE PO SCH (17:13)
[2018-04-01] MEDS: ALBUTEROL/IPRATROPIUM 3 ML NEB RESP TX SCH (19:21)
[2018-04-01] MEDS ORDERED: ENOXAPARIN 40 MG/0.4 ML SYRINGE SUBCUT SCH (21:00)
[2018-04-01] MEDS: CARVEDILOL 3.125 MG TABLET PO SCH (22:37)
[2018-04-02] MEDS: ALBUTEROL/IPRATROPIUM 3 ML NEB RESP TX SCH ×4 (00:47→19:12)
[2018-04-02] MEDS: cefTAZidime 1,000 MG in SYRINGE 1 EACH IV SCH ×3 (00:50→17:54)
[2018-04-02] MEDS: MEROPENEM 1,000 MG in SODIUM CHLORIDE 0.9% 100 ML IV SCH ×3 (00:57→17:53)
[2018-04-02 04:48] LABS: Basophils % 0.2 % (0.0-0.8); Hematocrit 30.1 VOL% (42.0-52.0); Hemoglobin 9.3 GM/DL (14.0-18.0); Immature Granulocytes % 0.8 %; Immature Granulocytes Absolute 0.04 #; Lymphocytes # 0.2 10*3/uL (1.4-4.0); Lymphocytes % 4.6 % (21.2-54.2); Mean Corpuscular HGB Conc 30.9 GM/DL (32-36); Mean Corpuscular Hemoglobin 27 PG (27-34); Mean Corpuscular Volume 85.8 FL (87-102); Mean Platelet Volume 9.5 FL (9.6-12.0); Monocytes # 0.3 10*3/uL (0.11-0.8); Monocytes % 6.2 % (1.7-12.7); Neutrophils # 4.6 10*3/uL (1.4-7.4); Neutrophils % 88.2 % (38.7-73.9); Platelet Count 353 T/CUMM (130-400); Red Blood Count 3.51 MC/CUMM (3.8-5.5); Red Cell Distribution Width 18.6 % (9.3-17.3); White Blood Count 5.2 T/CUMM (4-12)
[2018-04-02 05:04] LABS: Calcium 8.5 MG/DL (8.5-10.1); Osmolality,Calculated 294.4 MOS/KG (273-304); Potassium 4.3 MMOL/L (3.5-5.1)
[2018-04-02 05:11] LABS: Band Neutrophils 1 % (0-10); Lymphocytes 7 % (20-55); Segmented Neutrophils 89 % (50-85); Total Cells Counted 100
[2018-04-02 05:12] LABS: Acanthocytes Few; Anisocytosis 1+; Hypochromasia 1+; Microcytosis 1+; Ovalocytes Few
[2018-04-02] MEDS: hydroCHLOROthiazide 12.5 MG CAPSULE PO SCH (08:40)
[2018-04-02] MEDS: FUROSEMIDE 40 MG/4 ML VIAL IV SCH (08:40)
[2018-04-02] MEDS: predniSONE 20 MG TABLET PO SCH (08:41)
[2018-04-02] MEDS: CARVEDILOL 3.125 MG TABLET PO SCH ×2 (08:41→21:20)
[2018-04-02] MEDS: PANTOPRAZOLE 40 MG TABLET PO SCH (08:41)
[2018-04-02] MEDS: BUDESONIDE/FORMOTEROL 160-4.5 INHALER 6 GM INH SCH ×2 (08:42→21:20)
[2018-04-02 11:32] LABS: INR 5.4
[2018-04-02] MEDS: FINASTERIDE 5 MG TABLET PO SCH (11:50)
[2018-04-02] MEDS: TAMSULOSIN 0.4 MG CAPSULE PO SCH ×2 (11:50→17:51)
[2018-04-02 12:22] LABS: Folate > 24.0 NG/ML (5.4-24.0); Vitamin B12 314 PG/ML (211-911)
[2018-04-02] MEDS ORDERED: SODIUM POLYSTYRENE SULFATE 15 GM/60 ML BOTTLE PO ONE (12:30)
[2018-04-02] MEDS ORDERED: PHYTONADIONE 5 MG/5 ML ORAL.SYR PO ONE (14:00)
[2018-04-02] MEDS ORDERED: CLINDAMYCIN 150 MG CAPSULE PO SCH (15:00)
[2018-04-02] MEDS: POTASSIUM CHLORIDE 10 MEQ TABLET PO SCH (17:51)
[2018-04-02] MEDS: MONTELUKAST 10 MG TABLET PO SCH (17:51)
[2018-04-02] MEDS: ASPIRIN EC 81 MG TABLET PO SCH (17:51)
[2018-04-03] MEDS: cefTAZidime 1,000 MG in SYRINGE 1 EACH IV SCH ×3 (00:44→17:35)
[2018-04-03] MEDS: ALBUTEROL/IPRATROPIUM 3 ML NEB RESP TX SCH ×4 (01:41→19:34)
[2018-04-03] MEDS: MEROPENEM 1,000 MG in SODIUM CHLORIDE 0.9% 100 ML IV SCH ×3 (02:39→17:35)
[2018-04-03 05:10] LABS: Basophils % 0.1 % (0.0-0.8); Eosinophils % 0.4 % (0.00-10.9); Hematocrit 29.1 VOL% (42.0-52.0); Hemoglobin 9.3 GM/DL (14.0-18.0); Immature Granulocytes % 0.8 %; Immature Granulocytes Absolute 0.09 #; Lymphocytes # 0.9 10*3/uL (1.4-4.0); Lymphocytes % 7.6 % (21.2-54.2); Mean Corpuscular Hemoglobin 27 PG (27-34); Mean Corpuscular Volume 85.6 FL (87-102); Mean Platelet Volume 9.3 FL (9.6-12.0); Monocytes # 0.8 10*3/uL (0.11-0.8); Monocytes % 7.2 % (1.7-12.7); Neutrophils # 9.5 10*3/uL (1.4-7.4); Neutrophils % 83.9 % (38.7-73.9); Platelet Count 404 T/CUMM (130-400); Red Cell Distribution Width 18.2 % (9.3-17.3); White Blood Count 11.3 T/CUMM (4-12)
[2018-04-03 05:17] LABS: INR 1.6; PT Patient Result 17.1 SECS
[2018-04-03 05:24] LABS: Calcium 8.2 MG/DL (8.5-10.1); Potassium 3.7 MMOL/L (3.5-5.1)
[2018-04-03 05:28] LABS: % Iron Saturation 14.5 % (18-50)
[2018-04-03] MEDS: PANTOPRAZOLE 40 MG TABLET PO SCH (09:18)
[2018-04-03] MEDS: predniSONE 20 MG TABLET PO SCH (09:18)
[2018-04-03] MEDS: CARVEDILOL 3.125 MG TABLET PO SCH (09:19)
[2018-04-03] MEDS: BUDESONIDE/FORMOTEROL 160-4.5 INHALER 6 GM INH SCH ×2 (09:19→21:14)
[2018-04-03] MEDS: hydroCHLOROthiazide 12.5 MG CAPSULE PO SCH (09:19)
[2018-04-03] MEDS: FUROSEMIDE 40 MG/4 ML VIAL IV SCH (09:19)
[2018-04-03] MEDS ORDERED: LOPERAMIDE 2 MG CAPSULE PO PRN (11:56)
[2018-04-03] MEDS: FINASTERIDE 5 MG TABLET PO SCH (12:17)
[2018-04-03] MEDS: TAMSULOSIN 0.4 MG CAPSULE PO SCH ×2 (12:17→17:34)
[2018-04-03] MEDS: FERRIC GLUCONATE COMPLEX 125 MG in SODIUM CHLORIDE 0.9% 100 ML IV SCH (13:30)
[2018-04-03 14:58] LABS: Calcium 8.4 MG/DL (8.5-10.1); Osmolality,Calculated 295.3 MOS/KG (273-304); Potassium 3.6 MMOL/L (3.5-5.1)
[2018-04-03] MEDS: ASPIRIN EC 81 MG TABLET PO SCH (17:34)
[2018-04-03] MEDS: MONTELUKAST 10 MG TABLET PO SCH (17:37)
[2018-04-03] MEDS ORDERED: WARFARIN 1 MG TABLET PO SCH (18:00)
[2018-04-03] MEDS: POTASSIUM CHLORIDE 10 MEQ TABLET PO SCH (18:28)
[2018-04-03] MEDS: CARVEDILOL 6.25 MG TABLET PO SCH (21:14)
[2018-04-04] MEDS: ALBUTEROL/IPRATROPIUM 3 ML NEB RESP TX SCH ×4 (00:30→19:24)
[2018-04-04] MEDS: cefTAZidime 1,000 MG in SYRINGE 1 EACH IV SCH ×3 (00:44→18:13)
[2018-04-04] MEDS: MEROPENEM 1,000 MG in SODIUM CHLORIDE 0.9% 100 ML IV SCH ×3 (03:16→18:14)
[2018-04-04 04:41] LABS: Basophils % 0.1 % (0.0-0.8); Eosinophils # 0.2 10*3/uL (0.0-0.87); Eosinophils % 1.7 % (0.00-10.9); Hemoglobin 9.8 GM/DL (14.0-18.0); Immature Granulocytes % 0.9 %; Immature Granulocytes Absolute 0.08 #; Lymphocytes # 0.9 10*3/uL (1.4-4.0); Lymphocytes % 9.4 % (21.2-54.2); Mean Corpuscular HGB Conc 31.6 GM/DL (32-36); Mean Corpuscular Hemoglobin 27 PG (27-34); Mean Corpuscular Volume 86.1 FL (87-102); Monocytes # 0.8 10*3/uL (0.11-0.8); Monocytes % 9.3 % (1.7-12.7); Neutrophils # 7.1 10*3/uL (1.4-7.4); Neutrophils % 78.6 % (38.7-73.9); Platelet Count 409 T/CUMM (130-400); Red Cell Distribution Width 18.1 % (9.3-17.3); White Blood Count 9.1 T/CUMM (4-12)
[2018-04-04 04:59] LABS: INR 1.2; PT Patient Result 12.7 SECS
[2018-04-04 05:09] LABS: Calcium 8.2 MG/DL (8.5-10.1); Osmolality,Calculated 294.1 MOS/KG (273-304); Potassium 3.7 MMOL/L (3.5-5.1)
[2018-04-04] MEDS ORDERED: APIXABAN 5 MG TABLET PO SCH (09:00)
[2018-04-04] MEDS: FERRIC GLUCONATE COMPLEX 125 MG in SODIUM CHLORIDE 0.9% 100 ML IV SCH (10:07)
[2018-04-04] MEDS: PANTOPRAZOLE 40 MG TABLET PO SCH (10:08)
[2018-04-04] MEDS: FUROSEMIDE 40 MG/4 ML VIAL IV SCH (10:08)
[2018-04-04] MEDS: predniSONE 20 MG TABLET PO SCH (10:09)
[2018-04-04] MEDS: hydroCHLOROthiazide 12.5 MG CAPSULE PO SCH (10:09)
[2018-04-04] MEDS: BUDESONIDE/FORMOTEROL 160-4.5 INHALER 6 GM INH SCH ×2 (10:14→22:10)
[2018-04-04] MEDS: CARVEDILOL 6.25 MG TABLET PO SCH ×2 (11:24→22:12)
[2018-04-04] MEDS: TAMSULOSIN 0.4 MG CAPSULE PO SCH ×2 (13:55→18:13)
[2018-04-04] MEDS: FINASTERIDE 5 MG TABLET PO SCH (13:55)
[2018-04-04] MEDS ORDERED: WARFARIN 5 MG TABLET PO ONE (18:00)
[2018-04-04] MEDS: POTASSIUM CHLORIDE 10 MEQ TABLET PO SCH (18:12)
[2018-04-04] MEDS: MONTELUKAST 10 MG TABLET PO SCH (18:12)
[2018-04-04] MEDS: ASPIRIN EC 81 MG TABLET PO SCH (18:13)
[2018-04-05] MEDS: ALBUTEROL/IPRATROPIUM 3 ML NEB RESP TX SCH ×3 (00:54→13:00)
[2018-04-05] MEDS: cefTAZidime 1,000 MG in SYRINGE 1 EACH IV SCH ×2 (01:45→10:05)
[2018-04-05] MEDS: MEROPENEM 1,000 MG in SODIUM CHLORIDE 0.9% 100 ML IV SCH ×2 (01:48→10:10)
[2018-04-05 04:51] LABS: Eosinophils # 0.8 10*3/uL (0.0-0.87); Eosinophils % 8.6 % (0.00-10.9); Hematocrit 32.2 VOL% (42.0-52.0); Hemoglobin 10.2 GM/DL (14.0-18.0); Immature Granulocytes Absolute 0.09 #; Lymphocytes # 1.2 10*3/uL (1.4-4.0); Mean Corpuscular HGB Conc 31.7 GM/DL (32-36); Mean Corpuscular Hemoglobin 27 PG (27-34); Mean Corpuscular Volume 86.3 FL (87-102); Monocytes # 0.9 10*3/uL (0.11-0.8); Monocytes % 9.5 % (1.7-12.7); Neutrophils # 6.3 10*3/uL (1.4-7.4); Neutrophils % 67.9 % (38.7-73.9); Platelet Count 420 T/CUMM (130-400); Red Blood Count 3.73 MC/CUMM (3.8-5.5); Red Cell Distribution Width 17.7 % (9.3-17.3); White Blood Count 9.2 T/CUMM (4-12)
[2018-04-05 05:00] LABS: INR 1.1; PT Patient Result 11.4 SECS
[2018-04-05 05:14] LABS: Calcium 8.2 MG/DL (8.5-10.1); Osmolality,Calculated 291.3 MOS/KG (273-304); Potassium 3.6 MMOL/L (3.5-5.1)
[2018-04-05] MEDS ORDERED: FUROSEMIDE 40 MG TABLET PO SCH (09:00)
[2018-04-05] MEDS: predniSONE 20 MG TABLET PO SCH (10:02)
[2018-04-05] MEDS: hydroCHLOROthiazide 12.5 MG CAPSULE PO SCH (10:02)
[2018-04-05] MEDS: CARVEDILOL 6.25 MG TABLET PO SCH (10:02)
[2018-04-05] MEDS: PANTOPRAZOLE 40 MG TABLET PO SCH (10:03)
[2018-04-05] MEDS: BUDESONIDE/FORMOTEROL 160-4.5 INHALER 6 GM INH SCH (10:04)
[2018-04-05] MEDS: FERRIC GLUCONATE COMPLEX 125 MG in SODIUM CHLORIDE 0.9% 100 ML IV SCH (11:16)
[2018-04-05 12:22] VITALS: BP 143/74
[2018-04-05] MEDS: FINASTERIDE 5 MG TABLET PO SCH (12:55)
[2018-04-05] MEDS: TAMSULOSIN 0.4 MG CAPSULE PO SCH (12:55)
[2018-04-05] MEDS ORDERED: WARFARIN 5 MG TABLET PO SCH (18:00)
[2018-04-06] MEDS ORDERED: WARFARIN 2.5 MG TABLET PO SCH (18:00)
== END 2018-04-05 13:35 | disposition home or self-care (01) | DRG 292 ==
LOC: N.ED 10:06 → N.EDINP 13:29 → N.2E 13:39
PROVIDERS: ADMIT Internal Medicine; ATTEND Internal Medicine

== ENCOUNTER 2021-07-15 11:56 | Inpatient (IN) ==
[2021-07-15] MEDS ORDERED: LACTATED RINGERS 500 ML IV ONE (12:24)
[2021-07-15 12:55] LABS: Albumin 2.6 G/DL (3.4-5.0); Bilirubin,Total 0.9 MG/DL (0.20-1.00); Calcium 7.8 MG/DL (8.5-10.1); Potassium 4.6 MMOL/L (3.5-5.1); Total Protein 4.7 G/DL (6.4-8.2)
[2021-07-15 12:56] LABS: Basophils % 0.1 % (0.0-0.8); Eosinophils % 0.4 % (0.00-10.9); Hematocrit 31.9 VOL% (42.0-52.0); Hemoglobin 9.1 GM/DL (14.0-18.0); Immature Granulocytes % 0.5 %; Immature Granulocytes Absolute 0.04 #; Lymphocytes # 1.4 10*3/uL (1.4-4.0); Lymphocytes % 18.3 % (21.2-54.2); Mean Corpuscular HGB Conc 28.5 GM/DL (32-36); Mean Corpuscular Volume 79.2 FL (87-102); Mean Platelet Volume 9.8 FL (9.6-12.0); Monocytes % 10.2 % (1.7-12.7); Neutrophils % 70.5 % (38.7-73.9); Platelet Count 296 T/CUMM (130-400); Red Blood Count 4.03 MC/CUMM (3.8-5.5); Red Cell Distribution Width 19.2 % (9.3-17.3); White Blood Count 7.7 T/CUMM (4-12)
[2021-07-15 13:21] LABS: Anisocytosis 1+; Hypochromia 1+; Microcytosis 1+; Platelet Estimate Normal; Poikilocytosis Slight; Schistocytes Slight
[2021-07-15 13:22] LABS: Atypical Lymphocytes 1+; Macrocytosis Slight; Polychromasia 1+
[2021-07-15] MEDS ORDERED: GLUCAGON 1 MG VIAL IM PRN (14:21)
[2021-07-15] MEDS ORDERED: DEXTROSE 10% 250 ML BAG IV PRN (14:21)
[2021-07-15] MEDS ORDERED: ONDANSETRON 4 MG/2 ML VIAL IV PRN (14:24)
[2021-07-15] MEDS ORDERED: ACETAMINOPHEN 325 MG TABLET PO PRN (14:24)
[2021-07-15] MEDS ORDERED: ALBUTEROL/IPRATROPIUM 3 ML NEB RESP TX PRN (14:24)
[2021-07-15] MEDS ORDERED: PANTOPRAZOLE 40 MG TABLET PO SCH (14:30)
[2021-07-15] MEDS ORDERED: SODIUM CHLORIDE 0.9% 1,000 ML IV SCH (15:00)
[2021-07-15 15:23] LABS: INR 1.8; PT Patient Result 19.3 SECS (10.5-12.0)
[2021-07-15] MEDS: FERRIC GLUCONATE COMPLEX 125 MG in SODIUM CHLORIDE 0.9% 100 ML IV SCH (16:20)
[2021-07-15 16:22] LABS: Bilirubin,Urine Negative (Negative); Blood, Urine Negative (Negative); Glucose,Urine (UA) Negative (Negative); Hyaline Casts,Urine 20 /LPF (0-3); Ketones,Urine Negative (Negative); Mucus,Urine Occasional /LPF (Occasional); Nitrite,Urine Negative (Negative); Protein,Urine 30 MG/DL; RBC,Urine 1 /HPF (0-4); Squamous Epithelial Cell,Urine Occasional /HPF (0-10); Urine Appearance CLEAR (Clear); Urine Color Amber (Yellow); Urine Specific Gravity 1.026 (1.001-1.035); Urine Urobilinogen < 2.0 EU/DL (<2.0)
[2021-07-15] MEDS: carvediloL 3.125 MG TABLET PO SCH (18:22)
[2021-07-15] MEDS: INSULIN LISPRO 100 UNIT/ML SUBCUT SCH ×2 (18:22→20:45)
[2021-07-15] MEDS: PANTOPRAZOLE 40 MG TABLET PO SCH (20:45)
[2021-07-15] MEDS: TAMSULOSIN 0.4 MG CAPSULE PO SCH (20:45)
[2021-07-16 05:57] LABS: INR 1.9; PT Patient Result 20.1 SECS (10.5-12.0)
[2021-07-16 05:58] LABS: Albumin 2.1 G/DL (3.4-5.0); Bilirubin,Total 0.6 MG/DL (0.20-1.00); Calcium 7.3 MG/DL (8.5-10.1); Potassium 4.1 MMOL/L (3.5-5.1); Total Protein 4.4 G/DL (6.4-8.2)
[2021-07-16 06:10] LABS: Basophils % 0.3 % (0.0-0.8); Eosinophils # 0.1 10*3/uL (0.0-0.87); Eosinophils % 1.8 % (0.00-10.9); Hemoglobin 7.5 GM/DL (14.0-18.0); Immature Granulocytes % 0.3 %; Immature Granulocytes Absolute 0.02 #; Lymphocytes # 2.1 10*3/uL (1.4-4.0); Lymphocytes % 35.1 % (21.2-54.2); Mean Corpuscular Volume 81.5 FL (87-102); Mean Platelet Volume 10.2 FL (9.6-12.0); Neutrophils % 52.5 % (38.7-73.9); Platelet Count 238 T/CUMM (130-400); Red Blood Count 3.29 MC/CUMM (3.8-5.5); White Blood Count 6.1 T/CUMM (4-12)
[2021-07-16 06:19] LABS: Hematocrit 26.8 VOL% (42.0-52.0)
[2021-07-16] MEDS: carvediloL 3.125 MG TABLET PO SCH ×2 (09:56→17:46)
[2021-07-16] MEDS: DONEPEZIL 5 MG TABLET PO SCH (09:56)
[2021-07-16] MEDS: INSULIN LISPRO 100 UNIT/ML SUBCUT SCH ×4 (09:56→20:11)
[2021-07-16] MEDS: PANTOPRAZOLE 40 MG TABLET PO SCH ×2 (09:57→20:09)
[2021-07-16] MEDS: FINASTERIDE 5 MG TABLET PO SCH (09:57)
[2021-07-16] MEDS: TAMSULOSIN 0.4 MG CAPSULE PO SCH ×2 (09:57→20:09)
[2021-07-16] MEDS: FERRIC GLUCONATE COMPLEX 125 MG in SODIUM CHLORIDE 0.9% 100 ML IV SCH (09:57)
[2021-07-16 13:05] LABS: Hemoglobin 7.8 GM/DL (14.0-18.0)
[2021-07-17 04:07] LABS: Basophils % 0.3 % (0.0-0.8); Eosinophils # 0.2 10*3/uL (0.0-0.87); Eosinophils % 2.5 % (0.00-10.9); Hematocrit 26.4 VOL% (42.0-52.0); Hemoglobin 7.5 GM/DL (14.0-18.0); Immature Granulocytes % 0.4 %; Immature Granulocytes Absolute 0.03 #; Lymphocytes # 2.3 10*3/uL (1.4-4.0); Lymphocytes % 29.7 % (21.2-54.2); Mean Corpuscular HGB Conc 28.4 GM/DL (32-36); Mean Platelet Volume 9.5 FL (9.6-12.0); Monocytes % 9.5 % (1.7-12.7); Neutrophils % 57.6 % (38.7-73.9); Platelet Count 212 T/CUMM (130-400); Red Cell Distribution Width 18.8 % (9.3-17.3); White Blood Count 7.6 T/CUMM (4-12)
[2021-07-17 04:19] LABS: INR 1.5; PT Patient Result 16.7 SECS (10.5-12.0)
[2021-07-17 04:28] LABS: Calcium 7.7 MG/DL (8.5-10.1); Osmolality,Calculated 288.1 MOS/KG (273-304); Potassium 4.3 MMOL/L (3.5-5.1)
[2021-07-17 04:35] LABS: Hypochromia 1+; Microcytosis Slight; Platelet Estimate Normal
[2021-07-17] MEDS: INSULIN LISPRO 100 UNIT/ML SUBCUT SCH ×4 (07:20→21:13)
[2021-07-17] MEDS ORDERED: SODIUM CHLORIDE 0.9% 1,000 ML IV PRN (08:29)
[2021-07-17] MEDS ORDERED: FUROSEMIDE 40 MG TABLET PO ONE (09:00)
[2021-07-17] MEDS: DONEPEZIL 5 MG TABLET PO SCH (09:14)
[2021-07-17] MEDS: TAMSULOSIN 0.4 MG CAPSULE PO SCH ×2 (09:14→21:14)
[2021-07-17] MEDS: PANTOPRAZOLE 40 MG TABLET PO SCH ×2 (09:14→21:14)
[2021-07-17] MEDS: carvediloL 3.125 MG TABLET PO SCH ×2 (09:14→17:02)
[2021-07-17] MEDS: FINASTERIDE 5 MG TABLET PO SCH (09:14)
[2021-07-17] MEDS: FERRIC GLUCONATE COMPLEX 125 MG in SODIUM CHLORIDE 0.9% 100 ML IV SCH (09:15)
[2021-07-17] MEDS ORDERED: FUROSEMIDE 40 MG TABLET PO PRN (13:44)
[2021-07-17] MEDS ORDERED: AZITHROMYCIN INJ 500 MG in SODIUM CHLORIDE 0.9% 250 ML IV SCH (15:00)
[2021-07-17] MEDS: cefTRIAXone 1,000 MG in SODIUM CHLORIDE 0.9% 100 ML IV SCH (16:16)
[2021-07-17 17:08] LABS: Hematocrit 28.4 VOL% (42.0-52.0); Hemoglobin 8.3 GM/DL (14.0-18.0)
[2021-07-17 22:18] LABS: CDT Result Negative (Negative); CDT Specimen Source STOOL
[2021-07-18 05:41] LABS: Basophils % 0.3 % (0.0-0.8); Eosinophils # 0.2 10*3/uL (0.0-0.87); Eosinophils % 2.3 % (0.00-10.9); Hematocrit 30.7 VOL% (42.0-52.0); Hemoglobin 8.9 GM/DL (14.0-18.0); Immature Granulocytes % 0.4 %; Immature Granulocytes Absolute 0.03 #; Lymphocytes # 2.7 10*3/uL (1.4-4.0); Lymphocytes % 38.9 % (21.2-54.2); Mean Corpuscular Volume 81.2 FL (87-102); Mean Platelet Volume 9.5 FL (9.6-12.0); Monocytes % 9.2 % (1.7-12.7); Neutrophils % 48.9 % (38.7-73.9); Platelet Count 210 T/CUMM (130-400); Red Blood Count 3.78 MC/CUMM (3.8-5.5); Red Cell Distribution Width 19.3 % (9.3-17.3); White Blood Count 6.8 T/CUMM (4-12)
[2021-07-18 06:01] LABS: Osmolality,Calculated 283.4 MOS/KG (273-304); Potassium 4.3 MMOL/L (3.5-5.1)
[2021-07-18] MEDS: DONEPEZIL 5 MG TABLET PO SCH (09:55)
[2021-07-18] MEDS: FINASTERIDE 5 MG TABLET PO SCH (09:55)
[2021-07-18] MEDS: FUROSEMIDE 20 MG TABLET PO SCH ×2 (09:56→15:49)
[2021-07-18] MEDS: PANTOPRAZOLE 40 MG TABLET PO SCH ×2 (09:56→20:55)
[2021-07-18] MEDS: carvediloL 3.125 MG TABLET PO SCH ×2 (09:56→16:12)
[2021-07-18] MEDS: TAMSULOSIN 0.4 MG CAPSULE PO SCH ×2 (09:56→20:55)
[2021-07-18] MEDS: INSULIN LISPRO 100 UNIT/ML SUBCUT SCH ×4 (10:40→20:17)
[2021-07-18] MEDS: cefTRIAXone 1,000 MG in SODIUM CHLORIDE 0.9% 100 ML IV SCH (15:49)
[2021-07-19 06:16] LABS: Calcium 8.2 MG/DL (8.5-10.1); Osmolality,Calculated 276.8 MOS/KG (273-304); Potassium 3.8 MMOL/L (3.5-5.1)
[2021-07-19] MEDS ORDERED: POLYETHYLENE GLYCOL POWDER 17 GM PACK PO PRN (07:48)
[2021-07-19] MEDS ORDERED: MAGNESIUM SULF RIDER 2 GM/50 ML PREMIX IV ONE (08:00)
[2021-07-19] MEDS: INSULIN LISPRO 100 UNIT/ML SUBCUT SCH ×4 (08:14→21:33)
[2021-07-19] MEDS ORDERED: POTASSIUM CHLORIDE 10 MEQ TABLET PO SCH (09:00)
[2021-07-19 09:13] LABS: Basophils % 0.4 % (0.2-1.0); Eosinophils # 0.2 # (0.0-0.70); Eosinophils % 2.6 % (0.0-10.0); Hematocrit 29.6 VOL% (42.0-52.0); Lymphocytes # 2.7 # (1.3-2.9); Lymphocytes % 38.8 % (20.5-45.5); Mean Corpuscular HGB Conc 30.4 GM/DL (32-36); Mean Corpuscular Volume 77.9 FL (80-94); Mean Platelet Volume 9.5 FL (7.4-10.4); Neutrophils % 49.1 % (43.0-65.0); Platelet Count 216 T/CUMM (130-400); Red Cell Distribution Width 19.8 % (11.5-15.5); White Blood Count 6.9 T/CUMM (4.8-10.8)
[2021-07-19] MEDS: FINASTERIDE 5 MG TABLET PO SCH (09:13)
[2021-07-19] MEDS: DONEPEZIL 5 MG TABLET PO SCH (09:13)
[2021-07-19] MEDS: carvediloL 3.125 MG TABLET PO SCH ×2 (09:13→17:44)
[2021-07-19] MEDS: TAMSULOSIN 0.4 MG CAPSULE PO SCH ×2 (09:13→20:51)
[2021-07-19] MEDS: MONTELUKAST 10 MG TABLET PO SCH (09:13)
[2021-07-19] MEDS: PANTOPRAZOLE 40 MG TABLET PO SCH ×2 (09:13→20:50)
[2021-07-19] MEDS: FUROSEMIDE 20 MG TABLET PO SCH (09:14)
[2021-07-19] MEDS: FUROSEMIDE 20 MG/2 ML VIAL IV SCH ×2 (11:22→17:45)
[2021-07-19] MEDS: cefTRIAXone 1,000 MG in SODIUM CHLORIDE 0.9% 100 ML IV SCH (15:29)
[2021-07-19] MEDS: WARFARIN 5 MG TABLET PO SCH (17:44)
[2021-07-19] MEDS: ASPIRIN EC 81 MG TABLET PO SCH (17:44)
[2021-07-19] MEDS: LACTULOSE 20 GM/30 ML UDCUP PO SCH (20:50)
[2021-07-19] MEDS: POTASSIUM CHLORIDE 10 MEQ TABLET PO SCH (20:50)
[2021-07-20] MEDS: FUROSEMIDE 20 MG/2 ML VIAL IV SCH ×3 (02:15→18:15)
[2021-07-20 06:40] LABS: INR 1.1; PT Patient Result 12.6 SECS (10.5-12.0)
[2021-07-20 06:47] LABS: Calcium 8.8 MG/DL (8.5-10.1); Osmolality,Calculated 274.1 MOS/KG (273-304); Potassium 4.1 MMOL/L (3.5-5.1)
[2021-07-20 07:14] LABS: Basophils % 0.3 % (0.0-0.8); Eosinophils # 0.1 10*3/uL (0.0-0.87); Eosinophils % 1.2 % (0.00-10.9); Hemoglobin 10.3 GM/DL (14.0-18.0); Immature Granulocytes % 0.3 %; Immature Granulocytes Absolute 0.04 #; Lymphocytes # 3.8 10*3/uL (1.4-4.0); Lymphocytes % 32.7 % (21.2-54.2); Mean Corpuscular HGB Conc 29.1 GM/DL (32-36); Mean Corpuscular Volume 79.6 FL (87-102); Mean Platelet Volume 10.3 FL (9.6-12.0); Monocytes % 10.9 % (1.7-12.7); Neutrophils % 54.6 % (38.7-73.9); Platelet Count 254 T/CUMM (130-400); Red Blood Count 4.45 MC/CUMM (3.8-5.5); White Blood Count 11.5 T/CUMM (4-12)
[2021-07-20 07:21] LABS: Hematocrit 35.4 VOL% (42.0-52.0)
[2021-07-20] MEDS: INSULIN LISPRO 100 UNIT/ML SUBCUT SCH ×4 (08:00→22:10)
[2021-07-20] MEDS: POTASSIUM CHLORIDE 10 MEQ TABLET PO SCH ×2 (10:22→22:10)
[2021-07-20] MEDS: DONEPEZIL 5 MG TABLET PO SCH (10:22)
[2021-07-20] MEDS: carvediloL 3.125 MG TABLET PO SCH ×2 (10:22→16:38)
[2021-07-20] MEDS: LACTULOSE 20 GM/30 ML UDCUP PO SCH ×2 (10:22→22:09)
[2021-07-20] MEDS: TAMSULOSIN 0.4 MG CAPSULE PO SCH ×2 (10:22→22:09)
[2021-07-20] MEDS: MONTELUKAST 10 MG TABLET PO SCH (10:23)
[2021-07-20] MEDS: FINASTERIDE 5 MG TABLET PO SCH (10:23)
[2021-07-20] MEDS: PANTOPRAZOLE 40 MG TABLET PO SCH ×2 (10:23→22:10)
[2021-07-20] MEDS: methylPREDNISolone SOD SUC 40 MG/1 ML VIAL IV SCH ×2 (12:19→23:28)
[2021-07-20] MEDS: cefTRIAXone 1,000 MG in SODIUM CHLORIDE 0.9% 100 ML IV SCH (15:28)
[2021-07-20] MEDS: ASPIRIN EC 81 MG TABLET PO SCH (16:38)
[2021-07-20] MEDS: WARFARIN 5 MG TABLET PO SCH (18:00)
[2021-07-21] MEDS: FUROSEMIDE 20 MG/2 ML VIAL IV SCH (02:53)
[2021-07-21 05:49] LABS: Basophils % 0.1 % (0.0-0.8); Hematocrit 34.6 VOL% (42.0-52.0); Hemoglobin 10.3 GM/DL (14.0-18.0); Immature Granulocytes % 0.7 %; Immature Granulocytes Absolute 0.05 #; Lymphocytes # 0.7 10*3/uL (1.4-4.0); Lymphocytes % 9.1 % (21.2-54.2); Mean Corpuscular HGB Conc 29.8 GM/DL (32-36); Mean Corpuscular Volume 78.5 FL (87-102); Mean Platelet Volume 10.9 FL (9.6-12.0); Monocytes % 3.9 % (1.7-12.7); Neutrophils % 86.2 % (38.7-73.9); Platelet Count 257 T/CUMM (130-400); Red Blood Count 4.41 MC/CUMM (3.8-5.5); Red Cell Distribution Width 21.2 % (9.3-17.3); White Blood Count 7.6 T/CUMM (4-12)
[2021-07-21 05:58] LABS: INR 1.3; PT Patient Result 14.2 SECS (10.5-12.0)
[2021-07-21 06:04] LABS: Calcium 8.4 MG/DL (8.5-10.1); Potassium 4.1 MMOL/L (3.5-5.1)
[2021-07-21] MEDS: INSULIN LISPRO 100 UNIT/ML SUBCUT SCH ×4 (08:02→20:08)
[2021-07-21] MEDS: TAMSULOSIN 0.4 MG CAPSULE PO SCH ×2 (09:24→20:08)
[2021-07-21] MEDS: MONTELUKAST 10 MG TABLET PO SCH (09:24)
[2021-07-21] MEDS: DONEPEZIL 5 MG TABLET PO SCH (09:24)
[2021-07-21] MEDS: FINASTERIDE 5 MG TABLET PO SCH (09:24)
[2021-07-21] MEDS: carvediloL 3.125 MG TABLET PO SCH ×2 (09:25→16:16)
[2021-07-21] MEDS: PANTOPRAZOLE 40 MG TABLET PO SCH ×2 (09:25→20:08)
[2021-07-21] MEDS: POTASSIUM CHLORIDE 10 MEQ TABLET PO SCH ×2 (09:25→20:08)
[2021-07-21] MEDS: LACTULOSE 20 GM/30 ML UDCUP PO SCH (09:25)
[2021-07-21 09:45] LABS: ABG Base Excess 1.7 MMOL/L (-2.5-2.5); ABG HCO3 25.9 MMOL/L (20-26); ABG Oxygen Saturation 97.1 % (95-100); ABG PCO2 41.9 MM HG (35-48); ABG PH 7.409 (7.35-7.45); ABG PO2 91.1 MM HG (80-95)
[2021-07-21] MEDS ORDERED: FUROSEMIDE 20 MG/2 ML VIAL IV SCH ×2 (11:00)
[2021-07-21] MEDS: methylPREDNISolone SOD SUC 40 MG/1 ML VIAL IV SCH (11:35)
[2021-07-21] MEDS: FLUCONAZOLE 100 MG TABLET PO SCH (12:07)
[2021-07-21] MEDS: cefTRIAXone 1,000 MG in SODIUM CHLORIDE 0.9% 100 ML IV SCH (14:53)
[2021-07-21] MEDS: ASPIRIN EC 81 MG TABLET PO SCH (16:17)
[2021-07-21] MEDS: WARFARIN 5 MG TABLET PO SCH (17:27)
[2021-07-22 07:22] LABS: Basophils % 0.1 % (0.0-0.8); Hemoglobin 9.6 GM/DL (14.0-18.0); Immature Granulocytes % 0.8 %; Immature Granulocytes Absolute 0.12 #; Lymphocytes % 6.6 % (21.2-54.2); Mean Corpuscular Volume 78.8 FL (87-102); Mean Platelet Volume 9.9 FL (9.6-12.0); Monocytes % 5.5 % (1.7-12.7); Platelet Count 268 T/CUMM (130-400); Red Blood Count 4.06 MC/CUMM (3.8-5.5); Red Cell Distribution Width 21.8 % (9.3-17.3); White Blood Count 14.6 T/CUMM (4-12)
[2021-07-22 07:29] LABS: Calcium 7.7 MG/DL (8.5-10.1); INR 1.7; PT Patient Result 18.4 SECS (10.5-12.0); Potassium 4.5 MMOL/L (3.5-5.1)
[2021-07-22] MEDS: HYDROCORTISONE 100 MG VIAL IV SCH (09:19)
[2021-07-22] MEDS: LACTULOSE 20 GM/30 ML UDCUP PO SCH (09:19)
[2021-07-22] MEDS: INSULIN LISPRO 100 UNIT/ML SUBCUT SCH ×4 (09:19→21:36)
[2021-07-22] MEDS: carvediloL 3.125 MG TABLET PO SCH ×2 (09:20→16:31)
[2021-07-22] MEDS: DONEPEZIL 5 MG TABLET PO SCH (09:20)
[2021-07-22] MEDS: PANTOPRAZOLE 40 MG TABLET PO SCH (09:20)
[2021-07-22] MEDS: POTASSIUM CHLORIDE 10 MEQ TABLET PO SCH ×2 (09:20→20:57)
[2021-07-22] MEDS: FLUCONAZOLE 100 MG TABLET PO SCH (09:20)
[2021-07-22] MEDS: FINASTERIDE 5 MG TABLET PO SCH (09:20)
[2021-07-22] MEDS: TAMSULOSIN 0.4 MG CAPSULE PO SCH ×2 (09:20→20:57)
[2021-07-22] MEDS: MONTELUKAST 10 MG TABLET PO SCH (09:21)
[2021-07-22] MEDS: cefTRIAXone 1,000 MG in SODIUM CHLORIDE 0.9% 100 ML IV SCH (14:36)
[2021-07-22] MEDS: ASPIRIN EC 81 MG TABLET PO SCH (16:31)
[2021-07-22] MEDS ORDERED: WARFARIN 7.5 MG TABLET PO SCH (18:00)
[2021-07-22] MEDS ORDERED: WARFARIN 5 MG TABLET PO SCH (18:00)
[2021-07-22] MEDS: FAMOTIDINE 20 MG TABLET PO SCH (20:57)
[2021-07-23 06:01] LABS: Eosinophils % 0.1 % (0.00-10.9); Hematocrit 32.3 VOL% (42.0-52.0); Hemoglobin 9.6 GM/DL (14.0-18.0); Immature Granulocytes % 0.7 %; Immature Granulocytes Absolute 0.06 #; Lymphocytes # 1.7 10*3/uL (1.4-4.0); Lymphocytes % 18.2 % (21.2-54.2); Mean Corpuscular HGB Conc 29.7 GM/DL (32-36); Mean Corpuscular Volume 78.8 FL (87-102); Mean Platelet Volume 9.7 FL (9.6-12.0); Monocytes % 6.8 % (1.7-12.7); Neutrophils % 74.2 % (38.7-73.9); Platelet Count 262 T/CUMM (130-400); Red Cell Distribution Width 21.8 % (9.3-17.3); White Blood Count 9.2 T/CUMM (4-12)
[2021-07-23 06:05] LABS: PT Patient Result 21.4 SECS (10.5-12.0)
[2021-07-23 06:08] LABS: Calcium 8.2 MG/DL (8.5-10.1); Osmolality,Calculated 291.1 MOS/KG (273-304); Potassium 4.6 MMOL/L (3.5-5.1)
[2021-07-23 06:10] LABS: Total Protein (Chem) 5.3 G/DL (6.4-8.3)
[2021-07-23 06:13] LABS: Uric Acid 14.2 MG/DL (3.5-7.2)
[2021-07-23 07:30] LABS: Albumin (SPE) 3.3 G/DL (3.2-5.3); Albumin (SPE) Rel % 62.7 %; Alpha 1 (SPE) 0.3 G/DL (0.1-0.4); Alpha 1 (SPE) Rel % 5.2 %; Alpha 2 (SPE) 0.8 G/DL (0.4-1.0); Alpha 2 (SPE) Rel % 14.8 %; Beta (SPE) 0.6 G/DL (0.5-1.1); Beta (SPE) Rel % 10.8 %; Gamma (SPE) 0.3 G/DL (0.7-1.7); Gamma (SPE) Rel % 6.5 %
[2021-07-23] MEDS: FINASTERIDE 5 MG TABLET PO SCH (08:47)
[2021-07-23] MEDS: FLUCONAZOLE 100 MG TABLET PO SCH (08:47)
[2021-07-23] MEDS: POTASSIUM CHLORIDE 10 MEQ TABLET PO SCH ×2 (08:47→21:44)
[2021-07-23] MEDS: carvediloL 3.125 MG TABLET PO SCH ×2 (08:47→16:50)
[2021-07-23] MEDS: TAMSULOSIN 0.4 MG CAPSULE PO SCH ×2 (08:47→21:44)
[2021-07-23] MEDS: FAMOTIDINE 20 MG TABLET PO SCH ×2 (08:47→21:43)
[2021-07-23] MEDS: MONTELUKAST 10 MG TABLET PO SCH (08:47)
[2021-07-23] MEDS: LACTULOSE 20 GM/30 ML UDCUP PO SCH (08:47)
[2021-07-23] MEDS: DONEPEZIL 5 MG TABLET PO SCH (08:47)
[2021-07-23] MEDS: HYDROCORTISONE 100 MG VIAL IV SCH (08:48)
[2021-07-23] MEDS: INSULIN LISPRO 100 UNIT/ML SUBCUT SCH ×4 (08:53→21:43)
[2021-07-23] MEDS: cefTRIAXone 1,000 MG in SODIUM CHLORIDE 0.9% 100 ML IV SCH (15:40)
[2021-07-23] MEDS: ASPIRIN EC 81 MG TABLET PO SCH (16:50)
[2021-07-23] MEDS: allopurinoL 100 MG TABLET PO SCH (21:43)
[2021-07-24 06:44] LABS: Eosinophils # 0.1 10*3/uL (0.0-0.87); Eosinophils % 0.7 % (0.00-10.9); Hemoglobin 9.9 GM/DL (14.0-18.0); Immature Granulocytes % 0.7 %; Immature Granulocytes Absolute 0.05 #; Lymphocytes # 2.3 10*3/uL (1.4-4.0); Lymphocytes % 29.9 % (21.2-54.2); Mean Corpuscular Volume 79.3 FL (87-102); Mean Platelet Volume 9.4 FL (9.6-12.0); Monocytes % 8.1 % (1.7-12.7); Neutrophils % 60.6 % (38.7-73.9); Platelet Count 257 T/CUMM (130-400); Red Blood Count 4.16 MC/CUMM (3.8-5.5); Red Cell Distribution Width 21.6 % (9.3-17.3); White Blood Count 7.7 T/CUMM (4-12)
[2021-07-24 07:10] LABS: Calcium 8.5 MG/DL (8.5-10.1); Osmolality,Calculated 290.8 MOS/KG (273-304); Potassium 4.5 MMOL/L (3.5-5.1)
[2021-07-24] MEDS: INSULIN LISPRO 100 UNIT/ML SUBCUT SCH ×4 (07:29→21:47)
[2021-07-24] MEDS: carvediloL 3.125 MG TABLET PO SCH ×2 (07:37→17:29)
[2021-07-24] MEDS: FAMOTIDINE 20 MG TABLET PO SCH ×2 (09:35→21:52)
[2021-07-24] MEDS: TAMSULOSIN 0.4 MG CAPSULE PO SCH ×2 (09:35→21:51)
[2021-07-24] MEDS: FINASTERIDE 5 MG TABLET PO SCH (09:35)
[2021-07-24] MEDS: FLUCONAZOLE 100 MG TABLET PO SCH (09:35)
[2021-07-24] MEDS: POTASSIUM CHLORIDE 10 MEQ TABLET PO SCH ×2 (09:35→21:52)
[2021-07-24] MEDS: MONTELUKAST 10 MG TABLET PO SCH (09:35)
[2021-07-24] MEDS: DONEPEZIL 5 MG TABLET PO SCH (09:35)
[2021-07-24] MEDS: HYDROCORTISONE 100 MG VIAL IV SCH (09:36)
[2021-07-24] MEDS: LACTULOSE 20 GM/30 ML UDCUP PO SCH (09:36)
[2021-07-24] MEDS: predniSONE 10 MG TABLET PO SCH (11:24)
[2021-07-24 14:44] LABS: Protein/Creatinine Ratio,Urine 0.2 RATIO
[2021-07-24] MEDS: cefTRIAXone 1,000 MG in SODIUM CHLORIDE 0.9% 100 ML IV SCH (15:35)
[2021-07-24] MEDS: ASPIRIN EC 81 MG TABLET PO SCH (17:29)
[2021-07-24] MEDS: WARFARIN 2.5 MG TABLET PO SCH (17:29)
[2021-07-24] MEDS: allopurinoL 100 MG TABLET PO SCH (21:52)
[2021-07-25 07:06] LABS: Calcium 8.5 MG/DL (8.5-10.1); Osmolality,Calculated 291.5 MOS/KG (273-304); Potassium 4.5 MMOL/L (3.5-5.1)
[2021-07-25 07:41] LABS: Basophils % 0.1 % (0.0-0.8); Eosinophils # 0.1 10*3/uL (0.0-0.87); Eosinophils % 0.9 % (0.00-10.9); Hematocrit 34.6 VOL% (42.0-52.0); Hemoglobin 10.1 GM/DL (14.0-18.0); Immature Granulocytes % 0.3 %; Immature Granulocytes Absolute 0.03 #; Lymphocytes # 3.6 10*3/uL (1.4-4.0); Lymphocytes % 34.8 % (21.2-54.2); Mean Corpuscular HGB Conc 29.2 GM/DL (32-36); Mean Platelet Volume 9.5 FL (9.6-12.0); Monocytes % 7.8 % (1.7-12.7); Neutrophils % 56.1 % (38.7-73.9); Platelet Count 260 T/CUMM (130-400); Red Blood Count 4.27 MC/CUMM (3.8-5.5); Red Cell Distribution Width 22.2 % (9.3-17.3); White Blood Count 10.3 T/CUMM (4-12)
[2021-07-25] MEDS: POTASSIUM CHLORIDE 10 MEQ TABLET PO SCH ×2 (09:20→20:02)
[2021-07-25] MEDS: predniSONE 10 MG TABLET PO SCH (09:20)
[2021-07-25] MEDS: FLUCONAZOLE 100 MG TABLET PO SCH (09:20)
[2021-07-25] MEDS: DONEPEZIL 5 MG TABLET PO SCH (09:20)
[2021-07-25] MEDS: TAMSULOSIN 0.4 MG CAPSULE PO SCH ×2 (09:20→20:02)
[2021-07-25] MEDS: FINASTERIDE 5 MG TABLET PO SCH (09:20)
[2021-07-25] MEDS: MONTELUKAST 10 MG TABLET PO SCH (09:21)
[2021-07-25] MEDS: carvediloL 3.125 MG TABLET PO SCH ×2 (09:21→16:08)
[2021-07-25] MEDS: FAMOTIDINE 20 MG TABLET PO SCH ×2 (09:21→20:01)
[2021-07-25 09:36] LABS: Elliptocytes 1+; Hypochromia 2+; Spherocytes Few
[2021-07-25] MEDS: INSULIN LISPRO 100 UNIT/ML SUBCUT SCH ×4 (09:36→20:00)
[2021-07-25 09:37] LABS: Microcytosis 1+; Platelet Estimate Normal; Poikilocytosis 2+; Schistocytes Few
[2021-07-25] MEDS: ASPIRIN EC 81 MG TABLET PO SCH (16:08)
[2021-07-25] MEDS: WARFARIN 2.5 MG TABLET PO SCH (17:01)
[2021-07-25] MEDS: allopurinoL 100 MG TABLET PO SCH (20:01)
[2021-07-26] MEDS: INSULIN LISPRO 100 UNIT/ML SUBCUT SCH (09:34)
[2021-07-26] MEDS: TAMSULOSIN 0.4 MG CAPSULE PO SCH (09:37)
[2021-07-26] MEDS: predniSONE 10 MG TABLET PO SCH (09:37)
[2021-07-26] MEDS: POTASSIUM CHLORIDE 10 MEQ TABLET PO SCH (09:37)
[2021-07-26] MEDS: FLUCONAZOLE 100 MG TABLET PO SCH (09:37)
[2021-07-26] MEDS: MONTELUKAST 10 MG TABLET PO SCH (09:37)
[2021-07-26] MEDS: carvediloL 3.125 MG TABLET PO SCH (09:37)
[2021-07-26] MEDS: DONEPEZIL 5 MG TABLET PO SCH (09:38)
[2021-07-26] MEDS: FINASTERIDE 5 MG TABLET PO SCH (09:38)
[2021-07-26] MEDS: FAMOTIDINE 20 MG TABLET PO SCH (09:38)
[2021-07-26] MEDS ORDERED: predniSONE 20 MG TABLET PO SCH (11:30)
[2021-07-26 11:50] VITALS: BP 159/69
[2021-07-26] MEDS ORDERED: cephALEXin 250 MG CAPSULE PO SCH (12:00)
[2021-07-26] MEDS ORDERED: MEMANTINE 10 MG TABLET PO SCH (21:00)
[2021-07-26] MEDS ORDERED: ALBUTEROL 2 MG TABLET PO SCH (21:00)
[2021-07-27] MEDS ORDERED: MULTIVITAMIN (CENTRUM) TABLET PO SCH (09:00)
[2021-07-27] MEDS ORDERED: CHOLECALCIFEROL 1,000 UNIT TABLET PO SCH (09:00)
[2021-07-27] MEDS ORDERED: ASCORBIC ACID 500 MG TABLET PO SCH (09:00)
[2021-07-27] MEDS ORDERED: ZINC GLUCONATE 50 MG TABLET PO SCH (09:00)
== END 2021-07-26 12:57 | DRG 193 ==
LOC: N.3E 11:56 → N.ED 11:56 → SUATTDRO 14:21 → N.3E 17:15 → SUATTDRO 07-17 13:45 → N.3E 07-21 05:25
PROVIDERS: ADMIT Internal Medicine; ATTEND Internal Medicine Geriatric Medicine

== ENCOUNTER 2021-08-02 09:50 | Inpatient (IN) ==
[2021-08-02] MEDS ORDERED: VANCOMYCIN INJ 1,250 MG in SODIUM CHLORIDE 0.9% 250 ML IV STA (10:52)
[2021-08-02] MEDS ORDERED: PIPERACILLIN/TAZOBACTAM 3,375 MG in SODIUM CHLORIDE 0.9% 100 ML IV STA (10:52)
[2021-08-02] MEDS ORDERED: SODIUM CHLORIDE 0.9% 1,000 ML IV STA (10:52)
[2021-08-02 11:42] LABS: Basophils # 0.1 10*3/uL (0.0-0.2); Basophils % 0.3 % (0.0-0.8); Eosinophils # 0.1 10*3/uL (0.0-0.87); Eosinophils % 0.5 % (0.00-10.9); Hematocrit 32.3 VOL% (42.0-52.0); Hemoglobin 9.6 GM/DL (14.0-18.0); Immature Granulocytes % 0.7 %; Lymphocytes # 3.2 10*3/uL (1.4-4.0); Lymphocytes % 21.3 % (21.2-54.2); Mean Corpuscular HGB Conc 29.7 GM/DL (32-36); Mean Corpuscular Volume 80.1 FL (87-102); Mean Platelet Volume 9.3 FL (9.6-12.0); Monocytes % 7.2 % (1.7-12.7); Platelet Count 327 T/CUMM (130-400); Red Blood Count 4.03 MC/CUMM (3.8-5.5); Red Cell Distribution Width 24.1 % (9.3-17.3)
[2021-08-02 12:07] LABS: Alanine Aminotransferase 37 U/L (16-61); Albumin 2.1 G/DL (3.4-5.0); Alkaline Phosphatase 476 U/L (45-117); Aspartate Amino Transferase 182 U/L (0-37); Blood Urea Nitrogen 43 MG/DL (7-18); Calcium 8.4 MG/DL (8.5-10.1); Carbon Dioxide 26 MMOL/L (21-32); Estimated Glom Filtration Rate 29 ML/MIN; Glucose 133 MG/DL (74-106); Osmolality,Calculated 278.4 MOS/KG (273-304); Sodium 133 MMOL/L (136-145); Total Protein 5.4 G/DL (6.4-8.2)
[2021-08-02 12:53] LABS: Hyaline Casts,Urine 9 /LPF (0-3); Mucus,Urine Occasional /LPF (Occasional); RBC,Urine 1 /HPF (0-4); Squamous Epithelial Cell,Urine Occasional /HPF (0-10)
[2021-08-02 12:55] LABS: Bilirubin,Urine Negative (Negative); Blood, Urine Negative (Negative); Glucose,Urine (UA) Negative (Negative); Ketones,Urine Negative (Negative); Nitrite,Urine Negative (Negative); Protein,Urine Negative; Urine Appearance Clear (Clear); Urine Color Dark yellow (Yellow); Urine Urobilinogen 0.2 EU/DL (<2.0); Urine pH 5.5 (4.5-8.0)
[2021-08-02] MEDS ORDERED: GLUCAGON 1 MG VIAL IM PRN (13:06)
[2021-08-02] MEDS ORDERED: ACETAMINOPHEN 325 MG TABLET PO PRN (13:08)
[2021-08-02] MEDS ORDERED: ALBUTEROL 2.5 MG/3 ML NEB RESP TX PRN (13:08)
[2021-08-02] MEDS ORDERED: ONDANSETRON 4 MG/2 ML VIAL IV PRN (13:08)
[2021-08-02] MEDS ORDERED: DEXTROSE 10% 250 ML BAG IV PRN (14:19)
[2021-08-02 14:33] LABS: INR 4.6
[2021-08-02] MEDS: ALBUTEROL/IPRATROPIUM 3 ML NEB RESP TX SCH (19:20)
[2021-08-02] MEDS: PIPERACILLIN/TAZOBACTAM 3,375 MG in SODIUM CHLORIDE 0.9% 100 ML IV SCH ×2 (20:36→21:30)
[2021-08-02] MEDS: methylPREDNISolone SOD SUC 40 MG/1 ML VIAL IV SCH ×2 (20:36→21:30)
[2021-08-02] MEDS: SODIUM CHLORIDE 0.9% 1,000 ML IV SCH (20:37)
[2021-08-02] MEDS: carvediloL 3.125 MG TABLET PO SCH (21:00)
[2021-08-02] MEDS: ASPIRIN EC 81 MG TABLET PO SCH (21:02)
[2021-08-02] MEDS: allopurinoL 100 MG TABLET PO SCH (21:03)
[2021-08-02] MEDS: FAMOTIDINE 20 MG TABLET PO SCH (21:03)
[2021-08-02] MEDS: TAMSULOSIN 0.4 MG CAPSULE PO SCH (21:03)
[2021-08-02] MEDS: MEMANTINE 10 MG TABLET PO SCH (21:03)
[2021-08-02] MEDS: MENTHOL/ZINC OXIDE OINT 71 GM JAR TOP SCH (22:23)
[2021-08-03] MEDS: ALBUTEROL/IPRATROPIUM 3 ML NEB RESP TX SCH ×4 (00:50→19:15)
[2021-08-03] MEDS: SODIUM CHLORIDE 0.9% 1,000 ML IV SCH ×2 (02:49→21:42)
[2021-08-03] MEDS: PIPERACILLIN/TAZOBACTAM 3,375 MG in SODIUM CHLORIDE 0.9% 100 ML IV SCH ×4 (05:23→21:43)
[2021-08-03] MEDS: methylPREDNISolone SOD SUC 40 MG/1 ML VIAL IV SCH ×2 (05:24→12:19)
[2021-08-03 06:15] LABS: Calcium 8.1 MG/DL (8.5-10.1); Osmolality,Calculated 281.2 MOS/KG (273-304); Potassium 5.3 MMOL/L (3.5-5.1)
[2021-08-03 06:22] LABS: Basophils % 0.2 % (0.0-0.8); Eosinophils % 0.1 % (0.00-10.9); Hematocrit 32.3 VOL% (42.0-52.0); Immature Granulocytes % 0.7 %; Immature Granulocytes Absolute 0.07 #; Lymphocytes # 1.5 10*3/uL (1.4-4.0); Lymphocytes % 15.1 % (21.2-54.2); Mean Corpuscular HGB Conc 29.1 GM/DL (32-36); Mean Corpuscular Volume 80.3 FL (87-102); Mean Platelet Volume 9.5 FL (9.6-12.0); Monocytes % 2.7 % (1.7-12.7); Neutrophils % 81.2 % (38.7-73.9); Platelet Count 302 T/CUMM (130-400); Red Blood Count 4.02 MC/CUMM (3.8-5.5); Red Cell Distribution Width 23.9 % (9.3-17.3); White Blood Count 9.9 T/CUMM (4-12)
[2021-08-03 06:26] LABS: Hemoglobin 9.4 GM/DL (14.0-18.0)
[2021-08-03] MEDS ORDERED: ALBUTEROL 2 MG TABLET PO SCH (09:00)
[2021-08-03] MEDS: FAMOTIDINE 20 MG TABLET PO SCH ×2 (09:04→21:43)
[2021-08-03] MEDS: ZINC GLUCONATE 50 MG TABLET PO SCH (09:04)
[2021-08-03] MEDS: MONTELUKAST 10 MG TABLET PO SCH (09:04)
[2021-08-03] MEDS: DONEPEZIL 5 MG TABLET PO SCH (09:04)
[2021-08-03] MEDS: FINASTERIDE 5 MG TABLET PO SCH (09:04)
[2021-08-03] MEDS: MULTIVITAMIN (CENTRUM) TABLET PO SCH (09:04)
[2021-08-03] MEDS: ASCORBIC ACID 500 MG TABLET PO SCH (09:05)
[2021-08-03] MEDS: TAMSULOSIN 0.4 MG CAPSULE PO SCH ×2 (09:05→21:43)
[2021-08-03] MEDS: MENTHOL/ZINC OXIDE OINT 71 GM JAR TOP SCH ×2 (09:05→22:44)
[2021-08-03] MEDS: MEMANTINE 10 MG TABLET PO SCH ×2 (09:05→21:43)
[2021-08-03] MEDS: carvediloL 3.125 MG TABLET PO SCH ×2 (09:05→17:03)
[2021-08-03] MEDS ORDERED: SODIUM POLYSTYRENE SULFATE 15 GM/60 ML BOTTLE PO ONE (09:30)
[2021-08-03 10:56] LABS: INR 4.4; PT Patient Result 44.3 SECS (10.5-12.0)
[2021-08-03 11:50] LABS: Hepatitis B Core IgM Quant 0.21 Index; Hepatitis B Surface Ag Quant < 0.10 Index; Hepatitis B Surface Ag Result Non-Reactive (NonReactive); Hepatitis C Virus Ab Quant 0.16 Index; Hepatitis C Virus Ab Result Non-Reactive (NonReactive)
[2021-08-03] MEDS: ASPIRIN EC 81 MG TABLET PO SCH (17:03)
[2021-08-03] MEDS: allopurinoL 100 MG TABLET PO SCH (21:43)
[2021-08-04] MEDS: ALBUTEROL/IPRATROPIUM 3 ML NEB RESP TX SCH ×5 (00:21→19:05)
[2021-08-04] MEDS: methylPREDNISolone SOD SUC 40 MG/1 ML VIAL IV SCH ×2 (06:18→13:54)
[2021-08-04] MEDS: PIPERACILLIN/TAZOBACTAM 3,375 MG in SODIUM CHLORIDE 0.9% 100 ML IV SCH ×3 (06:18→21:13)
[2021-08-04] MEDS ORDERED: BENZONATATE 100 MG CAPSULE PO ONE (07:30)
[2021-08-04 07:47] LABS: Basophils % 0.1 % (0.0-0.8); Hematocrit 32.3 VOL% (42.0-52.0); Hemoglobin 9.5 GM/DL (14.0-18.0); Immature Granulocytes % 0.8 %; Immature Granulocytes Absolute 0.08 #; Lymphocytes # 0.4 10*3/uL (1.4-4.0); Mean Corpuscular HGB Conc 29.4 GM/DL (32-36); Mean Corpuscular Volume 79.8 FL (87-102); Mean Platelet Volume 9.5 FL (9.6-12.0); Monocytes % 4.6 % (1.7-12.7); Neutrophils % 90.5 % (38.7-73.9); Platelet Count 365 T/CUMM (130-400); Red Blood Count 4.05 MC/CUMM (3.8-5.5); White Blood Count 10.3 T/CUMM (4-12)
[2021-08-04] MEDS ORDERED: LIDOCAINE 1% 20 ML VIAL MISC INJ ONE (08:00)
[2021-08-04] MEDS ORDERED: LIDOCAINE 2% 20 ML VIAL RESP TX ONE (08:00)
[2021-08-04] MEDS ORDERED: LIDOCAINE 2% VISCOUS 100 ML BOTTLE SWISH/SPIT ONE (08:00)
[2021-08-04 08:06] LABS: PT Patient Result 55.9 SECS (10.5-12.0)
[2021-08-04 08:07] LABS: INR 5.7; Partial Thromboplastin Time 47.9 SECS (23.8-32.1)
[2021-08-04 08:11] LABS: Hypochromia 1+; Lymphocytes 5 % (20-55); Microcytosis 1+; Platelet Estimate Adequate; Segmented Neutrophils 93 % (50-85); Total Cells Counted 100
[2021-08-04 08:12] LABS: Ovalocytes Slight
[2021-08-04 08:14] LABS: Albumin 2.1 G/DL (3.4-5.0); Bilirubin,Total 0.5 MG/DL (0.20-1.00); Calcium 8.5 MG/DL (8.5-10.1); Osmolality,Calculated 295.4 MOS/KG (273-304); Potassium 3.9 MMOL/L (3.5-5.1); Total Protein 5.6 G/DL (6.4-8.2)
[2021-08-04] MEDS ORDERED: MIDAZOLAM 2 MG/2 ML VIAL ONE (08:20)
[2021-08-04] MEDS ORDERED: hydrALAZINE 20 MG/1 ML VIAL IV PRN (09:49)
[2021-08-04] MEDS ORDERED: SODIUM CHLORIDE 0.9% 1,000 ML IV PRN (10:17)
[2021-08-04] MEDS: MULTIVITAMIN (CENTRUM) TABLET PO SCH (11:36)
[2021-08-04] MEDS: carvediloL 3.125 MG TABLET PO SCH ×2 (11:36→17:29)
[2021-08-04] MEDS: MEMANTINE 10 MG TABLET PO SCH ×2 (11:36→21:14)
[2021-08-04] MEDS: FAMOTIDINE 20 MG TABLET PO SCH ×2 (11:36→21:13)
[2021-08-04] MEDS: DONEPEZIL 5 MG TABLET PO SCH (11:36)
[2021-08-04] MEDS: TAMSULOSIN 0.4 MG CAPSULE PO SCH ×2 (11:36→21:13)
[2021-08-04] MEDS: ASCORBIC ACID 500 MG TABLET PO SCH (11:37)
[2021-08-04] MEDS: FINASTERIDE 5 MG TABLET PO SCH (11:37)
[2021-08-04] MEDS: MONTELUKAST 10 MG TABLET PO SCH (11:37)
[2021-08-04] MEDS: ZINC GLUCONATE 50 MG TABLET PO SCH (11:37)
[2021-08-04] MEDS: MENTHOL/ZINC OXIDE OINT 71 GM JAR TOP SCH ×2 (13:11→21:13)
[2021-08-04] MEDS: SODIUM CHLORIDE 0.9% 1,000 ML IV SCH ×2 (14:16→14:42)
[2021-08-04] MEDS: ASPIRIN EC 81 MG TABLET PO SCH (17:29)
[2021-08-04] MEDS: allopurinoL 100 MG TABLET PO SCH (21:13)
[2021-08-05] MEDS: ALBUTEROL/IPRATROPIUM 3 ML NEB RESP TX SCH ×4 (00:30→19:03)
[2021-08-05] MEDS: methylPREDNISolone SOD SUC 40 MG/1 ML VIAL IV SCH ×2 (05:30→13:42)
[2021-08-05] MEDS: PIPERACILLIN/TAZOBACTAM 3,375 MG in SODIUM CHLORIDE 0.9% 100 ML IV SCH ×3 (05:30→21:06)
[2021-08-05 05:35] LABS: Hematocrit 27.9 VOL% (42.0-52.0); Hemoglobin 8.1 GM/DL (14.0-18.0); Immature Granulocytes % 0.9 %; Immature Granulocytes Absolute 0.12 #; Lymphocytes # 0.5 10*3/uL (1.4-4.0); Mean Corpuscular Volume 81.3 FL (87-102); Mean Platelet Volume 9.7 FL (9.6-12.0); Monocytes % 4.8 % (1.7-12.7); Neutrophils % 90.3 % (38.7-73.9); Platelet Count 304 T/CUMM (130-400); Red Blood Count 3.43 MC/CUMM (3.8-5.5); Red Cell Distribution Width 24.4 % (9.3-17.3); White Blood Count 12.9 T/CUMM (4-12)
[2021-08-05 06:02] LABS: Hypochromia 1+; Lymphocytes 7 % (20-55); Microcytosis 1+; Ovalocytes Slight; Platelet Estimate Adequate; Segmented Neutrophils 88 % (50-85); Total Cells Counted 100
[2021-08-05 06:06] LABS: PT Patient Result 51.6 SECS (10.5-12.0)
[2021-08-05 06:07] LABS: INR 5.2
[2021-08-05 06:08] LABS: Albumin 1.8 G/DL (3.4-5.0); Bilirubin,Total 0.5 MG/DL (0.20-1.00); Calcium 8.6 MG/DL (8.5-10.1); Osmolality,Calculated 302.1 MOS/KG (273-304); Potassium 3.9 MMOL/L (3.5-5.1); Total Protein 4.8 G/DL (6.4-8.2)
[2021-08-05 06:19] LABS: Cancer Antigen 19-9 324.94 U/ML (0-35); Carcinoembryonic Antigen 5.5 NG/ML (0.0-5.0)
[2021-08-05] MEDS: MONTELUKAST 10 MG TABLET PO SCH (08:43)
[2021-08-05] MEDS: MENTHOL/ZINC OXIDE OINT 71 GM JAR TOP SCH ×2 (08:44→21:05)
[2021-08-05] MEDS: FAMOTIDINE 20 MG TABLET PO SCH ×2 (08:44→21:05)
[2021-08-05] MEDS: FINASTERIDE 5 MG TABLET PO SCH (08:44)
[2021-08-05] MEDS: ZINC GLUCONATE 50 MG TABLET PO SCH (08:44)
[2021-08-05] MEDS: TAMSULOSIN 0.4 MG CAPSULE PO SCH ×2 (08:44→21:05)
[2021-08-05] MEDS: ASCORBIC ACID 500 MG TABLET PO SCH (08:44)
[2021-08-05] MEDS: MULTIVITAMIN (CENTRUM) TABLET PO SCH (08:44)
[2021-08-05] MEDS: DONEPEZIL 5 MG TABLET PO SCH (08:44)
[2021-08-05] MEDS: MEMANTINE 10 MG TABLET PO SCH ×2 (08:44→21:05)
[2021-08-05] MEDS: carvediloL 3.125 MG TABLET PO SCH ×2 (08:44→17:38)
[2021-08-05] MEDS ORDERED: SODIUM CHLORIDE 0.9% 1,000 ML IV PRN (10:19)
[2021-08-05] MEDS: ASPIRIN EC 81 MG TABLET PO SCH (17:38)
[2021-08-05] MEDS: SODIUM CHLORIDE 0.9% 1,000 ML IV SCH (19:09)
[2021-08-05] MEDS: allopurinoL 100 MG TABLET PO SCH (21:05)
[2021-08-06] MEDS: ALBUTEROL/IPRATROPIUM 3 ML NEB RESP TX SCH ×2 (00:11→07:50)
[2021-08-06] MEDS: PIPERACILLIN/TAZOBACTAM 3,375 MG in SODIUM CHLORIDE 0.9% 100 ML IV SCH ×2 (05:41→13:02)
[2021-08-06] MEDS: methylPREDNISolone SOD SUC 40 MG/1 ML VIAL IV SCH ×2 (05:42→13:02)
[2021-08-06] MEDS: SODIUM CHLORIDE 0.9% 1,000 ML IV SCH ×2 (05:42→09:18)
[2021-08-06 07:09] LABS: Basophils % 0.1 % (0.0-0.8); Hematocrit 27.1 VOL% (42.0-52.0); Hemoglobin 7.8 GM/DL (14.0-18.0); Immature Granulocytes Absolute 0.11 #; Lymphocytes # 0.7 10*3/uL (1.4-4.0); Lymphocytes % 5.6 % (21.2-54.2); Mean Corpuscular HGB Conc 28.8 GM/DL (32-36); Mean Corpuscular Volume 81.6 FL (87-102); Mean Platelet Volume 9.9 FL (9.6-12.0); Monocytes % 6.5 % (1.7-12.7); Neutrophils % 86.8 % (38.7-73.9); Platelet Count 300 T/CUMM (130-400); Red Blood Count 3.32 MC/CUMM (3.8-5.5); Red Cell Distribution Width 23.9 % (9.3-17.3); White Blood Count 11.5 T/CUMM (4-12)
[2021-08-06 07:24] LABS: INR 3.5; PT Patient Result 36.1 SECS (10.5-12.0)
[2021-08-06 07:28] LABS: Bilirubin,Total 0.5 MG/DL (0.20-1.00); Calcium 8.8 MG/DL (8.5-10.1); Osmolality,Calculated 312.6 MOS/KG (273-304); Potassium 4.3 MMOL/L (3.5-5.1); Total Protein 4.9 G/DL (6.4-8.2)
[2021-08-06 07:34] LABS: Hypochromia 2+
[2021-08-06 07:35] LABS: Acanthocytes Few; Anisocytosis 1+; Microcytosis 1+; Ovalocytes Few
[2021-08-06 07:36] LABS: Platelet Estimate Normal
[2021-08-06] MEDS: MONTELUKAST 10 MG TABLET PO SCH (08:56)
[2021-08-06] MEDS: MEMANTINE 10 MG TABLET PO SCH (08:56)
[2021-08-06] MEDS: TAMSULOSIN 0.4 MG CAPSULE PO SCH (08:56)
[2021-08-06] MEDS: FINASTERIDE 5 MG TABLET PO SCH (08:56)
[2021-08-06] MEDS: MENTHOL/ZINC OXIDE OINT 71 GM JAR TOP SCH (08:56)
[2021-08-06] MEDS: FAMOTIDINE 20 MG TABLET PO SCH (08:56)
[2021-08-06] MEDS: carvediloL 3.125 MG TABLET PO SCH (08:56)
[2021-08-06] MEDS: DONEPEZIL 5 MG TABLET PO SCH (08:56)
[2021-08-06] MEDS ORDERED: FUROSEMIDE 20 MG/2 ML VIAL IV ONE (10:11)
[2021-08-06 12:58] VITALS: BP 144/51
[2021-08-06 14:14] LABS: M. Tuberculosis PCR Result Negative (Negative); M. Tuberculosis PCR Source BRONCH WASH
[2021-08-06] MEDS ORDERED: WARFARIN 2.5 MG TABLET PO SCH (18:00)
== END 2021-08-06 14:04 | disposition hospice, home (50) | DRG 177 ==
LOC: EDUNIT# → EDBD → N.ED 09:50 → SUATTDRO 13:07 → N.EDINP 13:07 → N.3E 08-03 02:31
PROVIDERS: ADMIT Internal Medicine; ATTEND Internal Medicine